=== PATIENT | female | born 1945 | race Caucasian/White ===

== ENCOUNTER 2019-05-22 06:21 | Emergency (ER) | payer MEDICARE, SELFPAY ==
[2019-05-22] VITALS (16 sets, daily range): BP systolic 45–191; BP diastolic 0–99; PULSE 74–101; RESP 14–44; TEMP 36.4; O2SAT 97–100; BMI 15.0
--- NOTE | 2019-05-22 06:29 | XR_ITS ---
WS: [id number] Portable AP upright chest, 05/22/2019, 0654 hours. Clinical Data: cough Comparison: Portable chest, 03/11/2019. Findings: No nodules, masses or effusions are seen. The heart is normal. The pulmonary vascularity is not increased. No pneumonia or pneumothorax is seen. The diaphragms are flattened. The aortic arch a nd the descending aorta show tortuosity. XR/XR chest 1V portable [id number] Impression: Atherosclerosis and hyperinflation.
--- NOTE | 2019-05-22 06:30 | ECG_ITS ---
Measurements Intervals [place] Rate: 93 P: 89 WI: 136 QRS: 83 QRSD: 101 T: 63 QT: 366 QTc: 456 SINUS RHYTHM MINIMAL VOLTAGE CRITERIA FOR LVH, CONSIDER NORMAL VARIANT [MEETS CRITERIA IN ONE : OF: R(aVL), S(V1), R(V5), R(V5/V6)+S(V1)] NONSPECIFIC T-WAVE ABNORMALITY Compared to ECG 03/11/2019 10:33:29 T-wave abnormality now present Electronically Signed On 05-22-2019 19:44:11 CUT AND COVER LINE WORKER by Norah Marin M.D. [id number] eddy
--- NOTE | 2019-05-22 06:39 | W.ED.SOB ---
HPI - SOB/Dyspnea General: Chief Complaint: Shortness of Breath/Dyspnea Stated Complaint: SOB Time Seen by Provider: 05/22/19 06:29 History of Present Illness: HPI Narrative: Deja Fletcher is a 73-year-old female who comes in with shortness of breath. History is very limited as the patient is in severe respiratory distress. Family member states she has COPD and wears 3 L of nasal cannula oxygen at all times. Patient has audible wheezing upon entry to the room. She denies any pain. Review of Systems General: Reports: ROS unobtainable due to medical condition (Respiratory distress) PFSH ED PFSH: Social History Smoking and tobacco status: former smoker Physical Exam Const: COMMON NORMALS: no apparent distress, oriented x3, no limitations, healthy appearing and well nourished EXAM LIMITATIONS: no altered mental status GENERAL APPEARANCE: cooperative, well kempt and well developed ORIENTATION/CONSCIOUSNESS: Yes awake HENMT: COMMON NORMALS: normocephalic, head/scalp atraumatic, hearing grossly normal bilaterally, external ears normal, EAC's normal, external nose normal and moist oral mucous membranes HEAD & SCALP: normal to inspection, normocephalic and atraumatic FACE & SINUS: normal facial exam and face symmetric NOSE: external nose normal and nares normal EXTERNAL EAR: Yes external ears normal EXTERNAL AUDITORY CANAL: EAC's normal MOUTH: oral and palatal mucosa normal and tongue normal Eye: COMMON NORMALS: PERRL, EOMs intact bilaterally, conjunctivae normal and no scleral icterus GENERAL EYE: normal appearance of both eyes and normal light reflex CONJUNCTIVA: Yes conjunctivae normal SCLERA: sclerae normal CORNEA: Yes corneas normal PUPIL: Yes PERRL DIRECT OPHTHALMOSCOPY: Yes normal light reflex Neck/C-Spine: COMMON NORMALS: full ROM, no lymphadenopathy, supple, no meningeal signs and no JVD GENERAL: Yes normal visual inspection and Yes trachea midline CERVICAL SPINE: Yes cervical ROM normal Chest: COMMONS NORMALS: inspection of chest normal and palpation of chest normal Resp: EFFORT & INSPECTION: Yes audible wheezes AUSCULTATION: rhonchi and wheezes Cardio: COMMON NORMALS: no JVD, regular rate, regular rhythm, S1 normal heart sound, S2 normal heart sound, no gallops, no clicks, no murmurs and no rub JUGULAR VENOUS DISTENTION: no JVD RATE: regular rate RHYTHM: regular rhythm HEART SOUNDS: S1 normal and S2 normal GI: COMMON NORMALS: soft to palpation, non-tender, no hepatosplenomegaly and no masses INSPECTION: Yes normal to inspection PALPATION: Yes soft and Yes no hepatosplenomegaly : COMMON NORMALS: Yes no CVA tenderness BLADDER/KIDNEY EXAM: Yes no CVA tenderness Back/Pelvis: COMMON NORMALS: no CVA tenderness, thoracic and lumbar spine normal to inspection, no thoracic nor lumbar tenderness and thoraco-lumbar ROM normal Extremity: COMMON NORMALS: normal to inspection, full ROM, normal capillary refill, no joint enlargement, no clubbing, cyanosis or edema and no calf tenderness Neuro: COMMON NORMALS: oriented x3, CN's II-XII intact bilaterally, moves all extremities, no focal motor deficits and no sensory deficits noted MENINGEAL SIGNS: Yes no meningeal signs Psych: COMMON NORMALS: mental status grossly normal, thought process normal, cooperative, affect normal, speech normal and activity/motor behavior normal APPEARANCE: Yes well kempt SPEECH: Yes normal speech THOUGHT PROCESS: normal thought process Skin: COMMON NORMALS: no rashes or lesions noted, skin turgor normal, no jaundice, no petechiae and no mottling GENERAL SKIN EXAM: no rashes or lesions noted and turgor normal Course Vital Signs: Vital signs: Vital Signs Temperature 97.6 F 05/22/19 06:27 Pulse Rate 101 H 05/22/19 06:27 Respiratory Rate 44 H 05/22/19 06:27 Blood Pressure 191/90 05/22/19 06:27 Pulse Oximetry 99 05/22/19 06:27 Coding Level of Care Code ED Marina Porter for Alena Hammond
[2019-05-22 06:46] LABS: Basophils % 0.5 %; Eosinophils # 0.6 10^3/uL (0.0-0.8); Eosinophils % 7.7 %; Hematocrit 42.5 % (37.0-47.0); Hemoglobin 13.5 g/dL (11.5-15.3); Lymphocytes # 1.5 10^3/uL (0.8-4.8); Lymphocytes % 19.2 %; Mean Corpuscular HGB Conc 31.8 g/dL (30.0-36.0); Mean Corpuscular Hemoglobin 28.9 pg (28.0-34.0); Mean Platelet Volume 9.6 fL (7.4-10.4); Monocytes # 0.5 10^3/uL (0.2-0.9); Monocytes % 6.5 %; Neutrophils % 65.8 %; Nucleated Red Blood Cells % 0 %; Platelet Count 261 10^3/cmm (130-400); Red Blood Count 4.67 10^6/uL (4.1-5.3); Red Cell Distribution Width 14.3 % (12.1-15.1); White Blood Count 7.6 10^3/uL (4.0-10.0)
[2019-05-22] MEDS: sodium chloride 0.9% 1,000 ML 100 ML IV (06:47)
[2019-05-22 07:03] LABS: Troponin(5th) Baseline 34 ng/mL (0-10)
[2019-05-22] MEDS: ipratropium-albuterol 3 mL Neb 9 ML INHALATION (07:03)
[2019-05-22 07:11] LABS: Alanine Aminotransferase 22 U/L (0-33); Albumin Level 4.6 g/dL (3.5-5.2); Alkaline Phosphatase 101 IU/L (35-105); Aspartate Amino Transferase 26 U/L (0-32); Blood Urea Nitrogen 12 mg/dL (8-23); Calcium 10.1 mg/dL (8.5-10.5); Carbon Dioxide 28 mmol/L (22-29); Chloride 100 mmol/L (98-107); Globulin 2.7 g/dL (1.3-4.6); Glucose 129 mg/dL (65-115); NT Pro B Type Natriuretic Pept 1245 pg/mL (0-125); Sodium 141 mmol/L (136-145); Total Bilirubin 0.3 mg/dL (0.15-1.2); Total Protein 7.3 g/dL (6.6-8.7)
[2019-05-22 07:19] LABS: Lactic Sepsis W/Reflex 1.1 mmol/L (0.5-2.2)
[2019-05-22] MEDS: succinylcholine 20 mg/mL SDV 10mL IVP (07:30)
[2019-05-22] MEDS: vecuronium 10 mg SDV IVP ×3 (07:40→11:48)
[2019-05-22] MEDS: LORazepam 2 mg/mL INJ 1 mL 1 MG IVP (07:46)
[2019-05-22 07:53] LABS: ABG PCO2 56.3 mmHg (35-45); ABG PH Result 7.33 (7.35-7.45); Arterial Blood Gas Hematocrit 41.7 % (37-47); Base Excess ABG 2.7 mmol/L (-2.0-2.0); Blood Gas Allen Test Pos; Blood Gas Sample Site Brachial, left; Blood Gas Sample Type Arterial; Blood Gas Tidal Volume 0.3; HCO3 ABG 29.9 mmol/L (22-26); Oxygen Device VENT
--- NOTE | 2019-05-22 07:59 | XR_ITS ---
WS: [id number] Portable AP upright chest, 05/22/2019, 0737 hours Clinical Data: confirm ET placement Comparison: Portable chest, 05/22/2019, 0654 hours. Findings: The endotracheal tube is above the tri. The nasogastric tube appears to be in the esopha maite and within the stomach. The diaphragms are flattened. No pneumothorax is present. Monitor leads o n the chest wall. The heart is normal. XR/XR chest 1V portable [id number] Impression: 1. Endotracheal tube above tri. 2. Nasogastric tube in good position. 3. Hyperinflation.
--- NOTE | 2019-05-22 08:02 | PC.NURSE ---
Unable to pull diprivan as ordered. Small vial pulled from RSI box. Pharmacy called and diprivan requested. Charge nurse advised of the use of RSI box diprivan.
[2019-05-22] MEDS: propofol 1,000 MG/100 ML INJ 2.2 MG IV (08:09)
[2019-05-22] MEDS: fentaNYL 50 mcg/mL INJ 2mL 100 MCG IVP ×2 (08:29→10:19)
--- NOTE | 2019-05-22 08:30 | ECG_ITS ---
Measurements Intervals [place] Rate: 76 P: 82 SD: 124 QRS: 85 QRSD: 102 T: 0 QT: 401 QTc: 451 SINUS RHYTHM MINIMAL VOLTAGE CRITERIA FOR LVH, CONSIDER NORMAL VARIANT [MEETS CRITERIA IN ONE : OF: R(aVL), S(V1), R(V5), R(V5/V6)+S(V1)] NONSPECIFIC T-WAVE ABNORMALITY Compared to ECG 03/11/2019 10:33:29 T-wave abnormality now present Electronically Signed On 05-22-2019 19:56:44 HOMICIDE SQUAD SERGEANT by Norah Marin M.D. [id number] eddy
[2019-05-22 08:51] LABS: Troponin 5 2HR 29.21 ng/mL (0-10)
[2019-05-22 08:55] LABS: Troponin 5 2HR Delta -4.79 ABS# (0-10)
[2019-05-22] MEDS: sodium chloride 0.9% 500 ML 999 ML IV (09:07)
[2019-05-22 10:25] LABS: Influenza A by IFA Negative (Negative); Influenza B by IFA Negative (Negative)
== END 2019-05-22 11:49 | disposition other institution (70) ==
PROVIDERS: Emergency Medicine; Emergency Provider Family Medicine; Family Provider Family Medicine
DX: R06.02 Shortness of breath (principal); R06.2 Wheezing; J44.9 Chronic obstructive pulmonary disease, unspecified; Z87.891 Personal history of nicotine dependence; Z99.81 Dependence on supplemental oxygen
CPT/HCPCS: 36415; 36600; 71045; 80053; 82803; 83605; 83735; 83880; 84484; 85025; 87040; 87070; 87205; 87804; 93005; 94002; 94640; 94799; 96365; 96366; 96367; 96374; 96375; 96376; 99284; 99291; J0330; J2060; J2704; J2930; J3010; J3490; J7030; J7040

== ENCOUNTER 2019-06-23 12:49 | Emergency (ER) | payer MEDICARE, SELFPAY ==
[2019-06-23 12:59] VITALS: BP 184/82; PULSE 89; RESP 17; TEMP 36.9; O2SAT 100; BMI 20.1
[2019-06-23 13:02] VITALS: PULSE 89; TEMP 36.9; O2SAT 100
--- NOTE | 2019-06-23 13:12 | W.ED.SOB ---
HPI - SOB/Dyspnea General: Chief Complaint: Shortness of Breath/Dyspnea Stated Complaint: sob Time Seen by Provider: 06/23/19 13:08 History of Present Illness: HPI Narrative: 73 yo female planing of shortness of breath. She is very anxious on exam room she is hyperventilating states shortness of breath began at home but got worse when she got here she denies any chest pain no fever sweats chills no productive cough no vomiting no diarrhea. Associated symptoms: Deny abdominal pain, chest pain, fever(s), nausea, orthopnea or vomiting Review of Systems Const: Denies: fever, chills, body aches, change in appetite, fatigue or malaise ENMT: Denies: throat pain, ear pain, nasal discharge or nasal congestion Card: Denies: chest pain, edema, shortness of breath on exertion or shortness of breath when lying down Resp: Reports: shortness of breath and non-productive cough; Denies: productive cough GI: Denies: abdominal pain, nausea, vomiting, vomiting blood, coffee grounds in vomit, diarrhea, constipation, bloating, blood in stool or black tarry stool : Denies: flank pain, difficulty urinating, painful urination, urinary frequency or urinary urgency Skin/Breast: Denies: rash or itching PFSH ED PFSH: Social History Smoking and tobacco status: current every day smoker Physical Exam Const: COMMON NORMALS: no apparent distress GENERAL APPEARANCE: cooperative and comfortable ORIENTATION/CONSCIOUSNESS: Yes awake, Yes oriented to person, Yes oriented to place and Yes oriented to time HENMT: COMMON NORMALS: normocephalic, head/scalp atraumatic, hearing grossly normal bilaterally, external ears normal, EAC's normal, TM's normal bilaterally, nasal mucous membranes and turbinates normal, moist oral mucous membranes and oropharynx normal HEAD & SCALP: normocephalic and atraumatic NOSE: nasal mucous membranes and turbinates normal EXTERNAL EAR: Yes external ears normal EXTERNAL AUDITORY CANAL: EAC's normal TYMPANIC MEMBRANE: TM's normal bilaterally Eye: COMMON NORMALS: PERRL, EOMs intact bilaterally, conjunctivae normal and no scleral icterus CONJUNCTIVA: Yes conjunctivae normal PUPIL: Yes PERRL Neck/C-Spine: COMMON NORMALS: full ROM, no lymphadenopathy, supple and no JVD Lymph: LYMPHATIC: no lymphadenopathy noted and no lymphedema noted Resp: COMMON NORMALS: normal respiratory effort, no retractions, no use of accessory muscles and clear to auscultation bilaterally AUSCULTATION: clear to auscultation bilaterally Cardio: COMMON NORMALS: no JVD, regular rate, regular rhythm and no murmurs RATE: regular rate RHYTHM: regular rhythm GI: COMMON NORMALS: soft to palpation and no hepatosplenomegaly AUSCULTATION: Yes normoactive bowel sounds PALPATION: Yes soft, No tender, No guarding and Yes no hepatosplenomegaly Extremity: COMMON NORMALS: normal to inspection, normal capillary refill, no clubbing, cyanosis or edema, no calf tenderness and no pedal edema Neuro: SENSORIUM/ORIENTATION: Yes oriented to person, Yes oriented to place and Yes oriented to time Skin: COMMON NORMALS: no rashes or lesions noted GENERAL SKIN EXAM: no rashes or lesions noted Course Vital Signs: Vital signs: Vital Signs Temperature 98.5 F 06/23/19 13:02 Pulse Rate 82 06/23/19 14:38 Respiratory Rate 17 06/23/19 14:38 Blood Pressure 184/82 06/23/19 12:59 Pulse Oximetry 94 06/23/19 14:38 MDM - SOB/Dyspnea MDM Narrative: Medical decision making narrative: Reviewed work-up with the patient including the labs . When patient first a lot arrived she was hyperventilating. No other significant findings at this time we will go ahead and discharge her home have her follow-up as needed return to emergency room if she has problems. Lab Data: Attestation: I reviewed the patient's lab results. Labs: Lab Results 06/23/19 06/23/19 06/23/19 Range/Units 13:15 13:15 14:06 WBC 5.7 (4.0-10.0) 10^3/ uL RBC 4.15 (4.1-5.3) 10^6/u L Hgb 12.4 (11.5-15.3) g/dL Hct 39.7 (37.0-47.0) % MCV 95.7 (81-99) fL MCH 29.9 (28.0-34.0) pg MCHC 31.2 (30.0-36.0) g/dL RDW 14.4 (12.1-15.1) % Plt Count 234 (130-400) 10^3/c mm MPV 9.7 (7.4-10.4) fL Neut % (Auto) 60.9 % Lymph % (Auto) 24.2 % Pettis % (Auto) 8.9 % Eos % (Auto) 5.3 % Baso % (Auto) 0.5 % Neut # (Auto) 3.5 (1.8-7.7) 10^3/u L Lymph # (Auto) 1.4 (0.8-4.8) 10^3/u L Pettis # (Auto) 0.5 (0.2-0.9) 10^3/u L Eos # (Auto) 0.3 (0.0-0.8) 10^3/u L Baso # (Auto) 0.0 (0.0-0.1) 10^3/u L Nucleated RBC % (a uto) 0 % Nucleated RBCs # 0.0 /100WBC Specimen Type Arterial Sample Site Brachial, right ABG pH 7.45 (7.35-7.45) ABG pCO2 38.7 (35-45) mmHg ABG pO2 86.6 (80.0-100.0) mmH g ABG HCO3 27.1 H (22-26) mmol/L ABG O2 Saturation 97.5 ABG Base Excess 3.0 H (-2.0-2.0) mmol/ L Som Test N/a A-a O2 Gradient 88.1 H (5-10) mmHg Hematocrit 39.0 (37-47) % Hgb O2 Saturation 95.4 (95-100) % Carboxyhemoglobin 1.3 (0.4-20.1) %THgb Methemoglobin 0.9 (0.4-1.5) % Total Hemoglobin 12.7 (12-16) g/dL Ionized Calcium 1.2 (1.1-1.4) mmol/L O2 Delivery Device Nc O2 Liters/Min 3.0 % FiO2 32.0 % Automobile Rental Clerk ID amh Sodium 143 141.0 (136-145) mmol/L Potassium 4.1 3.7 (3.5-5.1) mmol/L Chloride 102 (98-107) mmol/L Carbon Dioxide 28 (22-29) mmol/L Anion Gap 17.1 (5-19) BUN 13 (8-23) mg/dL Creatinine 0.7 (0.5-0.9) mg/dL Glucose 109 95.0 (65-115) mg/dL Calculated Osmolal ity 293 (285-295) mOsm/k g Calcium 10.0 (8.5-10.5) mg/dL Total Bilirubin 0.2 (0.15-1.2) mg/dL AST 21 (0-32) U/L ALT 13 (0-33) U/L Alkaline Phosphata se 91 (35-105) IU/L Total Protein 6.9 (6.6-8.7) g/dL Albumin 4.4 (3.5-5.2) g/dL Globulin 2.5 (1.3-4.6) g/dL Imaging Data^: CXR: Radiologist's impression: PROCEDURE INFORMATION: Exam: XR Chest, 1 View Exam date and time: 06/23/2019 1:39 PM Age: 73 years old Clinical indication: Cough and dyspnea; Patient HX: Cough/dyspnea x 5 days; Smoker; Additional info: Dyspnea/cough TECHNIQUE: Imaging protocol: XR of the chest Views: 1 view. COMPARISON: CR XR chest 1V portable [id number] 05/22/2019 7:31 AM FINDINGS: Lungs: Probable COPD with large lung volumes. No acute infiltrate evident. Pleural space: Unremarkable. No pleural effusion. No pneumothorax. Heart/Mediastinum: Unremarkable. No cardiomegaly. Bones/joints: Unremarkable. XR/XR chest 1V portable [id number] IMPRESSION: No acute findings. Probable COPD. Dictated By:Vinnie West MD Discharge Plan Discharge Patient Disposition: Home, Self-Care Clinical Impression: Acute hyperventilation syndrome Condition: Stable Prescriptions: No Action fluticasone propion-salmeterol [Wixela Inhub] 250-50 mcg/dose blister with device 1 ea INHALATION BID RF: 0 ipratropium-albuterol 0.5 mg-3 mg(2.5 mg base)/3 mL solution for nebulization 3 ml INHALATION Q6H PRN (Reason: Shortness Of Breath) RF: 0 donepezil 5 mg tablet 5 mg PO DAILY RF: 0 aspirin 81 mg Tablet,Chewable 81 - 162 mg PO DAILY RF: 0 albuterol sulfate 90 mcg/actuation HFA aerosol inhaler 1 puff INHALATION Q6H PRN (Reason: Shortness Of Breath) RF: 0 cetirizine 1 mg/mL solution 5 mg PO DAILY RF: 0 Discharge Orders: Discharge Order (Routine); Ordered 06/23/19 Ordered By: Booker Melendez Referrals: Shayy Hayden MD [Primary Care Provider] - Discharge Diet: Usual diet Discharge Activity: Resume usual activity Activity Restrictions/Additional Instructions: Follow-up with your doctor as needed Discharge Date/Time: 06/23/19 14:45 Coding Level of Care Code ED Oxidation Operator for Chg Fwd Exam Comprehensive
--- NOTE | 2019-06-23 13:38 | XRR_ITS ---
PROCEDURE INFORMATION: Exam: XR Chest, 1 View Exam date and time: 06/23/2019 1:39 PM Age: 73 years old Clinical indication: Cough and dyspnea; Patient HX: Cough/dyspnea x 5 days; Smoker; Additional info: Dyspnea/cough TECHNIQUE: Imaging protocol: XR of the chest Views: 1 view. COMPARISON: CR XR chest 1V portable [id number] 05/22/2019 7:31 AM FINDINGS: Lungs: Probable COPD with large lung volumes. No acute infiltrate evident. Pleural space: Unremarkable. No pleural effusion. No pneumothorax. Heart/Mediastinum: Unremarkable. No cardiomegaly. Bones/joints: Unremarkable. XR/XR chest 1V portable [id number] IMPRESSION: No acute findings. Probable COPD.
[2019-06-23 13:50] LABS: Basophils % 0.5 %; Eosinophils # 0.3 10^3/uL (0.0-0.8); Eosinophils % 5.3 %; Hematocrit 39.7 % (37.0-47.0); Hemoglobin 12.4 g/dL (11.5-15.3); Lymphocytes # 1.4 10^3/uL (0.8-4.8); Lymphocytes % 24.2 %; Mean Corpuscular HGB Conc 31.2 g/dL (30.0-36.0); Mean Corpuscular Hemoglobin 29.9 pg (28.0-34.0); Mean Corpuscular Volume 95.7 fL (81-99); Mean Platelet Volume 9.7 fL (7.4-10.4); Monocytes # 0.5 10^3/uL (0.2-0.9); Monocytes % 8.9 %; Neutrophils # 3.5 10^3/uL (1.8-7.7); Neutrophils % 60.9 %; Nucleated Red Blood Cells % 0 %; Platelet Count 234 10^3/cmm (130-400); Red Blood Count 4.15 10^6/uL (4.1-5.3); Red Cell Distribution Width 14.4 % (12.1-15.1); White Blood Count 5.7 10^3/uL (4.0-10.0)
[2019-06-23 14:14] LABS: Alanine Aminotransferase 13 U/L (0-33); Albumin Level 4.4 g/dL (3.5-5.2); Alkaline Phosphatase 91 IU/L (35-105); Anion Gap 17.1 (5-19); Blood Urea Nitrogen 13 mg/dL (8-23); Carbon Dioxide 28 mmol/L (22-29); Chloride 102 mmol/L (98-107); Creatinine Clr Calc Pharmacy 49.4536; Globulin 2.5 g/dL (1.3-4.6); Glucose 109 mg/dL (65-115); Osmolality Calculated 293 mOsm/kg (285-295); Potassium 4.1 mmol/L (3.5-5.1); Sodium 143 mmol/L (136-145); Total Bilirubin 0.2 mg/dL (0.15-1.2); Total Protein 6.9 g/dL (6.6-8.7)
[2019-06-23 14:18] VITALS: PULSE 82; RESP 16; O2SAT 99
[2019-06-23 14:18] LABS: ABG PCO2 38.7 mmHg (35-45); ABG PH Result 7.45 (7.35-7.45); Alveolar-Arterial Oxygen Gradi 88.1 mmHg (5-10); Blood Gas Operator Identificat amh; Blood Gas Sample Site Brachial, right; Blood Gas Sample Type Arterial; Carboxyhemoglobin 1.3 %THgb (0.4-20.1); HCO3 ABG 27.1 mmol/L (22-26); HGB O2 Sat 95.4 % (95-100); Ionized Calcium Level - ABG 1.2 mmol/L (1.1-1.4); Methemoglobin 0.9 % (0.4-1.5); Oxygen Device NC; Oxygen Saturation ABG 97.5; PO2 ABG 86.6 mmHg (80.0-100.0); Potassium Level - ABG 3.7 mmol/L (3.5-5.0); Total Hemoglobin 12.7 g/dL (12-16)
[2019-06-23 14:20] LABS: Aspartate Amino Transferase 21 U/L (0-32)
[2019-06-23] MEDS: LORazepam 1 mg Tablet 0.5 MG PO (14:36)
[2019-06-23 14:38] VITALS: PULSE 82; RESP 17; O2SAT 94
== END 2019-06-23 14:45 | disposition home or self-care (01) ==
PROVIDERS: Emergency Provider Family Medicine; Family Provider Family Medicine; PCP Family Medicine
DX: F45.8 Other somatoform disorders (principal); F17.200 Nicotine dependence, unspecified, uncomplicated
CPT/HCPCS: 12345; 36600; 71045; 80051; 80053; 82810; 83986; 85025; 99282; 99283

== ENCOUNTER 2019-07-18 12:43 | Emergency (ER) | payer MEDICARE, SELFPAY ==
[2019-07-18] VITALS (7 sets, daily range): BP systolic 123–173; BP diastolic 35–87; PULSE 80–96; RESP 24–76; TEMP 36.4; O2SAT 88–93; BMI 18.3
--- NOTE | 2019-07-18 12:56 | ECG_ITS ---
Measurements Intervals [place] Rate: 88 P: 85 ID: 100 QRS: 84 QRSD: 93 T: -9 QT: 384 QTc: 466 SINUS RHYTHM WITH SINUS ARRHYTHMIA WITH SHORT ID INTERVAL NONSPECIFIC ST & T-WAVE ABNORMALITY Compared to ECG 05/22/2019 08:34:11 Short ID interval now present T-wave abnormality still present Electronically Signed On 07-19-2019 6:43:18 CDT by Rayray Mesa M.D. [email or web address]
--- NOTE | 2019-07-18 12:56 | XR_ITS ---
WS: [id number] CHEST XRAY TECHNIQUE: Portable chest. CLINICAL INFORMATION: sob COMPARISON: June 23, 2019 FINDINGS: Heart: Normal cardiac silhouette. Lungs: Moderate chronic emphysematous changes. No acute pulmonary infiltrates. No focal pneumonia. No pleural fluid. Bones: Normal visualized bony structures. XR/XR chest 1V portable [id number] IMPRESSION: Moderate chronic emphysematous changes. No acute pulmonary infiltrates.
--- NOTE | 2019-07-18 12:57 | ED_ITS ---
HPI - SOB/Dyspnea General: Chief Complaint: Shortness of Breath/Dyspnea Stated Complaint: sob Time Seen by Provider: 07/18/19 12:49 Source: patient Mode of arrival: ambulatory Limitations: no limitations History of Present Illness: HPI Narrative: 74-year-old female who states she was in an argument with her just before arrival became very short of breath and anxious. Patient is very tachypneic here and having a panic attack. She has had multiple of these in the past and was seen here 2 weeks ago with the same. She denies any chest pain. Denies any fevers. MD elicited complaint: shortness of breath Onset (ago): minute(s) Associated symptoms: Deny abdominal pain, chest pain, fever(s), nausea or vomiting Review of Systems Const: Denies: fever, chills, body aches or change in appetite Eyes: Denies: blurry vision or eye discomfort ENMT: Denies: throat pain or dental pain Card: Denies: chest pain Resp: Reports: shortness of breath GI: Denies: abdominal pain, nausea, vomiting or diarrhea : Denies: painful urination Musc: Denies: neck pain or back pain Skin/Breast: Denies: rash Neuro: Denies: headache Psych: Reports: anxiety Thomas/Lymph: Denies: easy bruising All/Imm: Denies: hives PFSH ED PFSH: Social History Smoking and tobacco status: former smoker Physical Exam Const: COMMON NORMALS: no apparent distress, oriented x3 and healthy appearing HENMT: COMMON NORMALS: normocephalic and head/scalp atraumatic HEAD & SCALP: normocephalic and atraumatic Eye: COMMON NORMALS: PERRL and EOMs intact bilaterally PUPIL: Yes PERRL Neck/C-Spine: COMMON NORMALS: full ROM and supple Chest: COMMONS NORMALS: inspection of chest normal and palpation of chest normal Resp: COMMON NORMALS: no retractions, no use of accessory muscles and clear to auscultation bilaterally EFFORT & INSPECTION: Yes tachypneic AUSCULTATION: clear to auscultation bilaterally Cardio: COMMON NORMALS: regular rate, regular rhythm and no murmurs RATE: regular rate RHYTHM: regular rhythm GI: COMMON NORMALS: normal to inspection, nondistended, normoactive bowel sounds, soft to palpation, non-tender and no masses PALPATION: Yes soft Extremity: COMMON NORMALS: normal to inspection and full ROM Neuro: COMMON NORMALS: oriented x3, moves all extremities and no focal motor deficits Psych: COMMON NORMALS: mental status grossly normal, thought process normal and cooperative MOOD & AFFECT: Yes anxious THOUGHT PROCESS: normal thought process Skin: COMMON NORMALS: no rashes or lesions noted and no wounds GENERAL SKIN EXAM: no rashes or lesions noted Course Vital Signs: Vital signs: Vital Signs Temperature 97.6 F 07/18/19 12:53 Pulse Rate 86 07/18/19 14:22 Respiratory Rate 36 H 07/18/19 14:22 Blood Pressure 123/72 07/18/19 14:22 Pulse Oximetry 90 07/18/19 14:22 MDM - SOB/Dyspnea MDM Narrative: Medical decision making narrative: Patient presents here with dyspnea is likely from an anxiety attack. She feels much improved here after Ativan. She had a large work-up a week ago that was normal. EKG and x-ray here are normal. She is stable for discharge and is to follow-up with worsening. Lab Data: Labs: Lab Results 07/18/19 07/18/19 Range/Units 14:10 14:10 WBC 6.4 (4.0-10.0) 10^3/ uL RBC 4.38 (4.1-5.3) 10^6/u L Hgb 12.7 (11.5-15.3) g/dL Hct 40.2 (37.0-47.0) % MCV 91.8 (81-99) fL MCH 29.0 (28.0-34.0) pg MCHC 31.6 (30.0-36.0) g/dL RDW 13.8 (12.1-15.1) % Plt Count 188 (130-400) 10^3/c mm MPV 10.0 (7.4-10.4) fL Neut % (Auto) 69.1 % Lymph % (Auto) 15.6 % Chambers % (Auto) 8.1 % Eos % (Auto) 6.4 % Baso % (Auto) 0.6 % Neut # (Auto) 4.4 (1.8-7.7) 10^3/u L Lymph # (Auto) 1.0 (0.8-4.8) 10^3/u L Chambers # (Auto) 0.5 (0.2-0.9) 10^3/u L Eos # (Auto) 0.4 (0.0-0.8) 10^3/u L Baso # (Auto) 0.0 (0.0-0.1) 10^3/u L Nucleated RBC % (a uto) 0 % Nucleated RBCs # 0.0 /100WBC Sodium 144 (136-145) mmol/L Potassium 3.2 L (3.5-5.1) mmol/L Chloride 102 (98-107) mmol/L Carbon Dioxide 29 (22-29) mmol/L Anion Gap 16.2 (5-19) BUN 13 (8-23) mg/dL Creatinine 0.6 (0.5-0.9) mg/dL Glucose 103 (65-115) mg/dL Calculated Osmolal ity 294 (285-295) mOsm/k g Calcium 9.8 (8.5-10.5) mg/dL Imaging Data^: CXR: Attestation: I personally reviewed and interpreted this imaging study as follows: Radiologist's impression: EKG Data^: EKG 1: Attestation: I personally reviewed and interpreted this EKG as follows: EKG Interpretation Date: 07/18/19 EKG interpretation time: 13:07 Interpretation: nsr hr [address] or t wave abnormalities qrs 93 qtc 430 Discharge Plan Discharge Patient Disposition: Home, Self-Care Clinical Impression: Anxiety Condition: Stable Prescriptions: No Action venlafaxine 75 mg capsule,extended release 24hr 75 mg PO DAILY RF: 0 lorazepam 0.5 mg tablet 0.5 mg PO BID PRN (Reason: unknown) RF: 0 fluticasone propion-salmeterol [Wixela Inhub] 250-50 mcg/dose blister with device 1 ea INHALATION BID RF: 0 ipratropium-albuterol 0.5 mg-3 mg(2.5 mg base)/3 mL solution for nebulization 3 ml INHALATION Q6H PRN (Reason: Shortness Of Breath) RF: 0 donepezil 5 mg tablet 10 mg PO DAILY RF: 0 aspirin 81 mg Tablet,Chewable 81 - 162 mg PO DAILY RF: 0 albuterol sulfate 90 mcg/actuation HFA aerosol inhaler 2 puff INHALATION QID PRN (Reason: Shortness Of Breath) RF: 0 cetirizine 1 mg/mL solution 5 mg PO DAILY RF: 0 Discharge Orders: Discharge Order (Routine); Ordered 07/18/19 Ordered By: Chip Perez Referrals: Shayy Hayden MD [Primary Care Provider] - 1-3 days Discharge Diet: Advance as tolerated Discharge Activity: Resume usual activity Patient Instructions: Anxiety (ED) Coding Level of Care Code ED Reinforced Concrete Inspector for Chg Fwd Exam Comprehensive
[2019-07-18] MEDS: LORazepam 2 mg/mL INJ 1 mL 1 MG IM (13:21)
--- NOTE | 2019-07-18 13:58 | PC.NURSE ---
pt. hightly anxious, repeated couching and she is still crying
[2019-07-18] MEDS: LORazepam 2 mg/mL INJ 1 mL 0.5 MG IVP (14:20)
[2019-07-18 14:21] LABS: Basophils % 0.6 %; Eosinophils # 0.4 10^3/uL (0.0-0.8); Eosinophils % 6.4 %; Hematocrit 40.2 % (37.0-47.0); Hemoglobin 12.7 g/dL (11.5-15.3); Lymphocytes % 15.6 %; Mean Corpuscular HGB Conc 31.6 g/dL (30.0-36.0); Mean Corpuscular Volume 91.8 fL (81-99); Monocytes # 0.5 10^3/uL (0.2-0.9); Monocytes % 8.1 %; Neutrophils # 4.4 10^3/uL (1.8-7.7); Neutrophils % 69.1 %; Nucleated Red Blood Cells % 0 %; Platelet Count 188 10^3/cmm (130-400); Red Blood Count 4.38 10^6/uL (4.1-5.3); Red Cell Distribution Width 13.8 % (12.1-15.1); White Blood Count 6.4 10^3/uL (4.0-10.0)
--- NOTE | 2019-07-18 14:23 | PC.NURSE ---
pt. anxious and crying meds given IV
[2019-07-18 14:40] LABS: Anion Gap 16.2 (5-19); Blood Urea Nitrogen 13 mg/dL (8-23); Calcium 9.8 mg/dL (8.5-10.5); Carbon Dioxide 29 mmol/L (22-29); Chloride 102 mmol/L (98-107); Creatinine Clr Calc Pharmacy 46.9483; Glucose 103 mg/dL (65-115); Osmolality Calculated 294 mOsm/kg (285-295); Potassium 3.2 mmol/L (3.5-5.1); Sodium 144 mmol/L (136-145)
--- NOTE | 2019-07-18 15:07 | PC.CHAP ---
Pastoral Care Encounter/Spiritual Assessment Type of Contact [] Declined prepress operator visit [] Patient/Family/Request visit [] Outpatient visit [] Follow-up visit [] Physician referral [] Code/Alert [] Routine visit [x] Staff referral [] Actively dying [] Patient sleeping [] Family support [] [] Out of room [] Palliative care [] [] Receiving care in room [] Pre-surgical visit [] Trauma [] Long length of stay [] ICU visit [] Other: ER Relational/Emotional Strength [] Patient feels connected with others/family/visitors/staff [x] Distress [x] Loneliness/isolation [x] Abandonment Spirituality of Patient [] Person of Beth [] Attends Restoration of their Beth [] Believes in Prayer [] Reads Bible or Hoahaoism materials [x] There are Spiritual issues to be addressed Stucco Plasterer Interventions [x] Prayer [x] Active listening [x] Non-anxious presence [x] Spiritual/emotional support [] Crisis/trauma care [] Spiritual counseling [] Bereavement support [] Provided bereavement packet [] Provided Bible/devotional materials [] Provided toy/stuffed animal, coloring book to patient or family member [] Provided Communion [] Anointing/[place] [] Salvation [x] Completed spiritual assessment [] Other: Impact on Illness or Injury [] Angry [] Fearful [] Anxious [] Often cries [] Exhaustion [] Unable to work [] Unable to attend advent [] Unable to walk/stand [] Unable to read [] Unable to drive [] Unable to eat/drink [] Unable to sleep [] Unable to be with family [] Patient intubated [] Other: Summary Stucco Plasterer was ask to try and calm patient down by ED staff. Patient is upset and shaking. She is very anxious about the possibility of going into a Snf. She is fearful of being locked in a room and not allowed out or not allowed to go outside. She is also very Anxious about her dog sissy. She is afraid she will not be taken care of. Patient seems confused and unable to focus due in part because of her fears. She repeated several time that her wanted to put her in an old folks home, she is convinced that if she goes into the home she will be forgotten and . prepress operator attempted to calm her fears and ask her to think about somewhere beautiful and peaceful, this seemed to help only for a few minutes. prepress operator prayed for her. Time spent with patient 25 min
--- NOTE | 2019-07-18 15:50 | PC.NURSE ---
entered room to find the pt. on the floor calling for help. she states she got out of bed. both rails were up on the bed. the charge nurse and the were notifided.
== END 2019-07-18 16:50 | disposition home or self-care (01) ==
PROVIDERS: Emergency Provider Emergency Medicine; Family Provider Family Medicine; PCP Family Medicine
DX: F41.9 Anxiety disorder, unspecified (principal); Z79.82 Long term (current) use of aspirin; Z87.891 Personal history of nicotine dependence
CPT/HCPCS: 12345; 71045; 80048; 85025; 93005; 96372; 96374; 96376; 99283; 99285; J2060

== ENCOUNTER 2019-09-12 09:55 | Inpatient (IN) | payer MEDICARE, SELFPAY ==
[2019-09-12] VITALS (30 sets, daily range): BP systolic 96–199; BP diastolic 55–116; PULSE 62–84; RESP 11–73; TEMP 36.3–37.2; O2SAT 92–100; BMI 17.4
--- NOTE | 2019-09-12 | SCC_ITS ---
Procedure Done: Open reduction internal fixation right intertrochanteric hip fracture utilizing the [place] gamma nail system with a size 11 x 180 x 125 degree gamma 3 trochanteric nail, a size 10 mm x 75 mm lag screw and a 5 mm x 32.5 mm distal locking screw 215.8 seconds of fluoroscopic guidance, for a cumulative dose of 9.26 mGy, was provided to Dr. Ruiz by the radiology department. C-arm images of the RIGHT hip were saved for the patient's permanent record. AVANI
--- NOTE | 2019-09-12 10:20 | PC.NURSE ---
Patient called out using call light to report that she needs to have a bowel movement. Patient placed on bed mckeon. Will continue to monitor patient.
--- NOTE | 2019-09-12 10:31 | ED_ITS ---
HPI - Fall General: Chief Complaint: Fall Stated Complaint: fall, hip pain Time Seen by Provider: 09/12/19 10:05 History of Present Illness: HPI Narrative: 74-year-old female brought in by EMS from home. She fell at home she is little confused now she had received 5 mg of morphine IM in the field. She really cannot tell me how she fell she thinks she may have stumbled but she is not completely certain she is complaining of right hip pain is obvious external rotation and very mild shortening at the right hip. She denies any chest pain or shortness of breath denies any recent illness no upper respiratory illnesses. Denies any dysuria urgency frequency any difficulty with bowel or bladder. Confusion was not present prior to the fall she tells me it became after she had fallen I suspect it is also the morphine she was given. She lives at home with her her is not at the bedside at the time I initially seen the patient. MD complaint: fall Onset (ago): minute(s) Fall from: standing Fall witnessed: yes, by family Place fall occurred: home Loss of consciousness: Unsure Prolonged down time: no Symptoms prior to fall: other (Unknown patient is confused secondary to medication she received in the field she thinks she may have stumbled) Context: tripped/slipped (Patient thinks she may have stumbled but due to medication she received in the field she is not sure) Location of injury: pelvis (Right hip) Severity: moderate Associated symptoms-after fall: Reports difficulty walking; Denies abdominal pain or chest pain Review of Systems Const: Denies: fever(s), chills, body aches, change in appetite, fatigue or malaise ENMT: Denies: throat pain, ear or mastoid pain, nasal discharge or nasal co ngestion Card: Denies: chest pain, edema, dyspnea on exertion or orthopnea Resp: Denies: dyspnea, productive cough or non-productive cough GI: Denies: abdominal pain, nausea, vomiting, hematemesis, coffee ground emesis, diarrhea, constipation, bloating, hematochezia or melena : Denies: flank pain, difficulty voiding, dysuria, urinary frequency or urinary urgency Skin/Breast: Denies: rash or pruritus Neuro: Reports: difficulty walking [facility] ED PFSH: Medical History (Updated 09/15/19 @ 16:35 by Booker Melendez DO) Anxiety COPD (chronic obstructive pulmonary disease) Dementia Surgical History History of hysterectomy Family History (Updated 09/12/19 @ 13:32 by Sendy Edwards DO) Mother CAD (coronary artery disease) Social History Smoking and tobacco status: former smoker Physical Exam Const: COMMON NORMALS: no acute distress GENERAL APPEARANCE: cooperative and comfortable ORIENTATION/CONSCIOUSNESS: Yes awake, Yes oriented to person, Yes oriented to place, Yes oriented to time and Yes Other orientation findings (Patient is oriented to time place and person but she is a little confused due to the details of her fall. I believe this is due to medication she received from EMS in the field. She is having increasing pain that is pretty significant however as I am doing her exam.) HENMT: COMMON NORMALS: normocephalic, atraumatic, hearing grossly normal bilaterally, external ears normal, EAC's normal, TM's normal bilaterally, Normal nasal mucous membranes and turbinates present, moist oral mucous membranes and oropharynx normal HEAD & SCALP: normocephalic and atraumatic NOSE: Normal nasal mucous membranes and turbinates present EXTERNAL EAR: Yes external ears normal EXTERNAL AUDITORY CANAL: EAC's normal TYMPANIC MEMBRANE: TM's normal bilaterally Eye: COMMON NORMALS: Equal, round and reactive pupils present, EOMs intact bilaterally, conjunctivae normal and no scleral icterus CONJUNCTIVA: Yes conjunctivae normal PUPIL: Yes Equal, round and reactive pupils present Neck/C-Spine: COMMON NORMALS: full ROM, no lymphadenopathy, supple and no JVD Lymph: LYMPHATIC: no lymphadenopathy noted and no lymphedema noted Resp: COMMON NORMALS: normal respiratory effort, No retractions, No use of accessory muscles and clear to auscultation bilaterally AUSCULTATION: clear to auscultation bilaterally Cardio: COMMON NORMALS: no JVD, regular rate, regular rhythm and No murmurs present (Cardio) RATE: regular rate RHYTHM: regular rhythm GI: COMMON NORMALS: Soft to palpation and No hepatosplenomegaly present AUSCULTATION: Yes normoactive bowel sounds PALPATION: Yes Soft to palpation, No Tenderness to palpation present (GI), No Guarding due to palpation present (GI) and Yes No hepatosplenomegaly present Extremity: COMMON NORMALS: normal to inspection, capillary refill normal, no clubbing, cyanosis or edema, no calf tenderness and no pedal edema Neuro: SENSORIUM/ORIENTATION: Yes oriented to person, Yes oriented to place and Yes oriented to time Skin: COMMON NORMALS: no rashes or lesions noted GENERAL SKIN EXAM: no rashes or lesions noted Course Vital Signs: Vital signs: Vital Signs Temperature 98.6 F 09/14/19 11:57 Pulse Rate 75 09/14/19 11:57 Respiratory Rate 16 09/14/19 11:57 Blood Pressure 133/60 09/14/19 11:57 Pulse Oximetry 99 09/14/19 10:57 MDM - Fall MDM Narrative: Medical decision making narrative: Not sure the exact details of her fall. She is not having any pain or shortness of breath now I suspect it was a mechanical trip or stumble fall. She cannot really tell me for certain due to medication she received prior to being examined. Unfortunately also to give her some more because he was having pretty significant pain in the ER. Lab Data: Labs: Lab Results 09/12/19 09/12/19 09/12/19 Range/Units 10:40 10:40 10:40 WBC 8.3 (4.0-10.0) 10^3/ uL RBC 3.89 L (4.1-5.3) 10^6/u L Hgb 11.6 (11.5-15.3) g/dL Hct 36.6 L (37.0-47.0) % MCV 94.1 (81-99) fL MCH 29.8 (28.0-34.0) pg MCHC 31.7 (30.0-36.0) g/dL RDW 14.2 (12.1-15.1) % Plt Count 267 (130-400) 10^3/c mm MPV 9.6 (7.4-10.4) fL Neut % (Auto) 75.6 % Lymph % (Auto) 15.0 % Rock % (Auto) 5.4 % Eos % (Auto) 2.9 % Baso % (Auto) 0.7 % Neut # (Auto) 6.3 (1.8-7.7) 10^3/u L Lymph # (Auto) 1.3 (0.8-4.8) 10^3/u L Rock # (Auto) 0.5 (0.2-0.9) 10^3/u L Eos # (Auto) 0.2 (0.0-0.8) 10^3/u L Baso # (Auto) 0.1 (0.0-0.1) 10^3/u L Nucleated RBC % (a uto) 0 % Nucleated RBCs # 0.0 /100WBC PT 12.60 (10.5-13.3) SECO NDS INR 0.92 (0.8-1.2) APTT 25.8 (23.9-36.7) SECO NDS Sodium 138 (136-145) mmol/L Potassium 4.5 (3.5-5.1) mmol/L Chloride 101 (98-107) mmol/L Carbon Dioxide 22 (22-29) mmol/L Anion Gap 19.5 H (5-19) BUN 14 (8-23) mg/dL Creatinine 0.6 (0.5-0.9) mg/dL Glucose 142 H (65-115) mg/dL Calculated Osmolal ity 285 (285-295) mOsm/k g Calcium 9.4 (8.5-10.5) mg/dL Total Bilirubin 0.3 (0.15-1.2) mg/dL AST 21 (0-32) U/L ALT 14 (0-33) U/L Alkaline Phosphata se 88 (35-105) IU/L Creatine Kinase 91 (26-192) U/L Total Protein 6.0 L (6.6-8.7) g/dL Albumin 3.9 (3.5-5.2) g/dL Globulin 2.1 (1.3-4.6) g/dL Urine Color (Yellow) Urine Appearance (CLEAR) Urine pH (5-7) Ur Specific Gravit y (1.005-1.030) Urine Protein (Negative) Urine Glucose (UA) (Normal) Urine Ketones (Negative) Urine Blood (Negative) Urine Nitrate (Negative) Urine Bilirubin (NEGATIVE) Urine Urobilinogen (Negative) mg/dL Ur Leukocyte Vicki ase (Negative) Blood Type Rho(D) Type Antibody Screen Antibody Identific ation Crossmatch 09/12/19 09/12/19 Range/Units 10:40 10:54 WBC (4.0-10.0) 10^3/ uL RBC (4.1-5.3) 10^6/u L Hgb (11.5-15.3) g/dL Hct (37.0-47.0) % MCV (81-99) fL MCH (28.0-34.0) pg MCHC (30.0-36.0) g/dL RDW (12.1-15.1) % Plt Count (130-400) 10^3/c mm MPV (7.4-10.4) fL Neut % (Auto) % Lymph % (Auto) % Rock % (Auto) % Eos % (Auto) % Baso % (Auto) % Neut # (Auto) (1.8-7.7) 10^3/u L Lymph # (Auto) (0.8-4.8) 10^3/u L Rock # (Auto) (0.2-0.9) 10^3/u L Eos # (Auto) (0.0-0.8) 10^3/u L Baso # (Auto) (0.0-0.1) 10^3/u L Nucleated RBC % (a uto) % Nucleated RBCs # /100WBC PT (10.5-13.3) SECO NDS INR (0.8-1.2) APTT (23.9-36.7) SECO NDS Sodium (136-145) mmol/L Potassium (3.5-5.1) mmol/L Chloride (98-107) mmol/L Carbon Dioxide (22-29) mmol/L Anion Gap (5-19) BUN (8-23) mg/dL Creatinine (0.5-0.9) mg/dL Glucose (65-115) mg/dL Calculated Osmolal ity (285-295) mOsm/k g Calcium (8.5-10.5) mg/dL Total Bilirubin (0.15-1.2) mg/dL AST (0-32) U/L ALT (0-33) U/L Alkaline Phosphata se (35-105) IU/L Creatine Kinase (26-192) U/L Total Protein (6.6-8.7) g/dL Albumin (3.5-5.2) g/dL Globulin (1.3-4.6) g/dL Urine Color Straw (Yellow) Urine Appearance Clear (CLEAR) Urine pH 6 (5-7) Ur Specific Gravit y 1.015 (1.005-1.030) Urine Protein Neg (Negative) Urine Glucose (UA) Norm (Normal) Urine Ketones Negative (Negative) Urine Blood Neg (Negative) Urine Nitrate Negative (Negative) Urine Bilirubin Neg (NEGATIVE) Urine Urobilinogen Norm (Negative) mg/dL Ur Leukocyte Vicki ase Negative (Negative) Blood Type A Negative Rho(D) Type Negative Antibody Screen Positive Antibody Identific ation Anti-D Crossmatch See Detail Discharge Plan Discharge Patient Disposition: Admitted As Inpatient Admit Provider: Sendy Edwards Clinical Impression: Intertrochanteric fracture of right hip, Dementia, COPD (chronic obstructive pulmonary disease), Anxiety Condition: Stable Discharge Orders: Discharge Order (Routine); Ordered 09/14/19 Ordered By: Sendy Edwards Discharge Diet: Advance as tolerated and Regular Discharge Activity: As per PT/OT instructions and Oxygen as instructed Interventions: ED Discharge Assessment Last Done: 09/12/19 13:34 ED Charges Last Done: 09/12/19 13:34 Discharge Date/Time: 09/12/19 13:36 Coding Level of Care Code ED Radio Station Operator for Alena Fwd Exam Comprehensive
--- NOTE | 2019-09-12 10:32 | XR_ITS ---
WS: [id number] XR chest 1V portable [id number] REASON FOR EXAM: dyspnea/cough FINDINGS: Hyper aerated lung posada are seen with flattenings of the hemidiaphragm similar to June 272019. There is interstitial fibrosis also seen. The heart was normal there is arteriosclerotic changes seen. There is no pneumonia, pleural effusion, pulmonary edema, or mass effect. The hilum and apices are normal. XR/XR chest 1V portable [id number] IMPRESSION: Moderately advanced chronic obstructive pulmonary disease.
--- NOTE | 2019-09-12 10:32 | ECG_ITS ---
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 Measurements Intervals Juliette Rate: 67 P: 80 OK: 142 QRS: 82 QRSD: 98 T: 51 QT: 416 QTc: 442 Interpretive Statements SINUS RHYTHM NONSPECIFIC T-WAVE ABNORMALITY Compared to ECG 07/18/2019 13:07:43 Sinus arrhythmia no longer present Short OK interval no longer present T-wave abnormality still present Electronically Signed On 09-12-2019 19:20:13 CDT by Norah Marin M.D. [id number]
[2019-09-12] MEDS: ondansetron 2 mg/ML SDV 2 mL 4 MG IVP ×3 (10:42→21:37)
[2019-09-12] MEDS: morphine 4 mg/mL SDV 1 mL IVP ×2 (10:43→11:43)
[2019-09-12] MEDS: sodium chloride 0.9% 1,000 ML 999 ML IV (10:47)
[2019-09-12 10:50] LABS: Basophils # 0.1 10^3/uL (0.0-0.1); Basophils % 0.7 %; Eosinophils # 0.2 10^3/uL (0.0-0.8); Eosinophils % 2.9 %; Hematocrit 36.6 % (37.0-47.0); Hemoglobin 11.6 g/dL (11.5-15.3); Lymphocytes # 1.3 10^3/uL (0.8-4.8); Mean Corpuscular HGB Conc 31.7 g/dL (30.0-36.0); Mean Corpuscular Hemoglobin 29.8 pg (28.0-34.0); Mean Corpuscular Volume 94.1 fL (81-99); Mean Platelet Volume 9.6 fL (7.4-10.4); Monocytes # 0.5 10^3/uL (0.2-0.9); Monocytes % 5.4 %; Neutrophils # 6.3 10^3/uL (1.8-7.7); Neutrophils % 75.6 %; Nucleated Red Blood Cells % 0 %; Platelet Count 267 10^3/cmm (130-400); Red Blood Count 3.89 10^6/uL (4.1-5.3); Red Cell Distribution Width 14.2 % (12.1-15.1); White Blood Count 8.3 10^3/uL (4.0-10.0)
[2019-09-12 10:57] LABS: Add Urine Microscopic? NO
[2019-09-12 11:02] LABS: Bilirubin Urine Neg (NEGATIVE); Blood Urine Neg (Negative); Glucose Urine UA Norm (Normal); Ketones Urine Negative (Negative); Leukocyte Esterase Urine Negative (Negative); Nitrate Urine Negative (Negative); Protein Urine Neg (Negative); Specific Gravity, Urine 1.015 (1.005-1.030); Urine Appearance Clear (CLEAR); Urine Color Straw (Yellow); Urobilinogen Urine Norm (Negative); pH Urine 6 (5-7)
[2019-09-12 11:05] LABS: Alanine Aminotransferase 14 U/L (0-33); Albumin Level 3.9 g/dL (3.5-5.2); Alkaline Phosphatase 88 IU/L (35-105); Anion Gap 19.5 (5-19); Aspartate Amino Transferase 21 U/L (0-32); Blood Urea Nitrogen 14 mg/dL (8-23); Calcium 9.4 mg/dL (8.5-10.5); Carbon Dioxide 22 mmol/L (22-29); Chloride 101 mmol/L (98-107); Creatine Phosphokinase 91 U/L (26-192); Creatinine Clr Calc Pharmacy 46.0647; Globulin 2.1 g/dL (1.3-4.6); Glucose 142 mg/dL (65-115); Osmolality Calculated 285 mOsm/kg (285-295); Potassium 4.5 mmol/L (3.5-5.1); Sodium 138 mmol/L (136-145); Total Bilirubin 0.3 mg/dL (0.15-1.2)
--- NOTE | 2019-09-12 11:30 | XR_ITS ---
WS: [id number] XR hip RT 2-3V wo/w pel* [id number] REASON FOR EXAM: fall/trauma FINDINGS: Intertrochanteric fracture is noted. Positioning is fairly satisfactory. Joint on the right is normal. No fractures of the visible pelvis are seen . IMPRESSION: Intertrochanteric fracture of the right hip.
[2019-09-12] MEDS: metoclopramide 5 mg/mL SDV 2 mL IVP (11:42)
[2019-09-12] MEDS: sodium chlor 0.9% + KCl 20 mEq 20 MEQ/1,000 ML BAG 125 MEQ IV (11:46)
--- NOTE | 2019-09-12 11:56 | PC.NURSE ---
Patient O2 saturation dropped after administering 4 of morphine. Patient placed on 3L via NC .
[2019-09-12 12:47] LABS: INR 0.92 (0.8-1.2)
[2019-09-12 12:48] LABS: Partial Thromboplastin Time 25.8 SECONDS (23.9-36.7)
--- NOTE | 2019-09-12 13:25 | P.HP_ITS ---
Providers/Chief Complaint Admitting Physician: Sendy Edwards DO Primary Care Provider: Shayy Hayden MD Chief Complaint: fall, hip pain History of Present Illness Deja Fletcher is a 74 year old female with a past medical history of COPD, dementia and anxiety that presented to the emergency department today after a fall. Her is present at bedside and reported the patient was sitting at the kitchen table when she got up to use the restroom and lost her footing and fell onto the floor. She was noted to have significant pain and brought to the ER for further evaluation and treatment. Most of the HPI was obtained from the patient's due to patient's underlying dementia and receiving pain medication for her hip pain. Patient denies any palpitations, no lig htheadedness or dizziness prior to this event. reports that it appeared to be mechanical fall in nature. No recent illness, no fever or chills. No exposure to COVID-19, reports that they have been staying at home and they have not been out to any public places. Patient was seen and evaluated in the emergency department noted to have concern for right intertrochanteric hip fracture, orthopedic surgeon was called and patient was admitted to the hospital for further evaluation and treatment. Review of Systems General: Reports: Other (Able to obtain some review of systems however difficult to obtain full review of systems due to underlying dementia.) Const: Denies: fever(s) or chills Eyes: Denies: change in vision Card: Denies: chest pain, palpitations or edema Resp: Denies: dyspnea, productive cough or hemoptysis GI: Reports: nausea; Denies: abdominal pain, vomiting, diarrhea, constipation, hematochezia or melena : Denies: dysuria or hematuria Musc: Reports: extremity pain; Denies: muscle cramps Skin/Breast: Denies: rash or new lesions Neuro: Denies: headache(s) or dizziness Psych: Denies: anxiety or depression Endo: Denies: polyuria or hot flashes Thomas/Lymph: Reports: easy bruising; Denies: easy bleeding Medications/Allergies Home Medications Medication Instructions Recorded Confirmed Last Taken Type albuterol sulfate 2 puff INHALATION QID PRN 05/22/19 09/12/19 09/12/19 History aspirin 81 - 162 mg PO DAILY 05/22/19 09/12/19 09/11/19 History donepezil 10 mg PO DAILY 05/22/19 09/12/19 09/11/19 History fluticasone propion-salmeterol 1 ea INHALATION BID 05/22/19 09/12/19 09/12/19 History [Wixela Inhub] ipratropium-albuterol 3 ml INHALATION Q6H PRN 05/22/19 09/12/19 09/12/19 History lorazepam 0.5 mg PO BID PRN 07/18/19 09/12/19 Unknown History venlafaxine 150 mg PO DAILY 07/18/19 09/12/19 09/11/19 History quetiapine [Seroquel] 25 mg PO BEDTIME 09/12/19 09/12/19 09/11/19 History Allergies Allergy/AdvReac Type Severity Reaction Status Date / Time No Known Allergies Allergy Verified 05/22/19 06:32 PFSH Acute PFSH: Medical History Anxiety COPD (chronic obstructive pulmonary disease) Dementia Surgical History History of hysterectomy Family History (Updated 09/12/19 @ 13:32 by Sendy Edwards DO) Mother CAD (coronary artery disease) Social History Smoking and tobacco status: former smoker Supplemental PFSH Information: Patient goes by her middle name Lexi Vitals/I&O/Wt Last Vital Signs Temp 97.5 F L 09/12/19 09:57 Pulse 80 09/12/19 13:14 Resp 20 H 09/12/19 13:14 BP 199/75 09/12/19 13:14 Pulse Ox 99 09/12/19 13:14 Weight last 48 hrs Weight 43.091 kg Physical Exam Const: COMMON NORMALS: alert GENERAL APPEARANCE: cooperative ORIENTATION/CONSCIOUSNESS: Yes awake and Yes oriented to person HENMT: COMMON NORMALS: normocephalic and atraumatic HEAD & SCALP: normocephalic and atraumatic Eye: COMMON NORMALS: Equal, round and reactive pupils present PUPIL: Yes Equal, round and reactive pupils present Neck/C-Spine: COMMON NORMALS: supple GENERAL: Yes normal visual inspection Resp: COMMON NORMALS: normal respiratory effort and clear to auscultation bilaterally EFFORT & INSPECTION: Yes able to speak in complete sentences AUSCULTATION: clear to auscultation bilaterally, no rhonchi and no wheezes Cardio: COMMON NORMALS: regular rate, regular rhythm and No murmurs present ( Cardio) RATE: regular rate RHYTHM: regular rhythm GI: COMMON NORMALS: Soft to palpation and non-tender INSPECTION: No abdominal distension AUSCULTATION: Yes normoactive bowel sounds PALPATION: Yes Soft to palpation Extremity: COMMON NORMALS: no clubbing, cyanosis or edema and no calf tenderness NARRATIVE EXTREMITY EXAM: tenderness to palpation over R hip with external rotation of R hip Neuro: COMMON NORMALS: CN's II-XII intact bilaterally, moves all extremities and no focal motor deficits SENSORIUM/ORIENTATION: Yes alert and Yes oriented to person SPEECH: speech normal Psych: COMMON NORMALS: cooperative OTHER: Underlying dementia Skin: NARRATIVE SKIN EXAM: Bruising over the R arm/forearm dry flaky rash over R hip Urinary Catheter Management^: Casillas: Cath Placed During This Visit: yes Reason for Continuing Indwelling Catheter: Other Urinary Catheter Date of Insertion: 09/12/19 Urinary Catheter Time of Insertion: 10:54 Data : 09/12/19 10:40 09/12/19 10:40 CXR: I personally reviewed and interpreted this imaging study as follows: Radiologist's impression: FINDINGS: Hyper aerated lung posada are seen with flattenings of the hemidiaphragm similar to July 18, 2019. There is interstitial fibrosis also seen. The heart was normal there is arteriosclerotic changes seen. There is no pneumonia, pleural effusion, pulmonary edema, or mass effect. The hilum and apices are normal. XR/XR chest 1V portable [id number] IMPRESSION: Moderately advanced chronic obstructive pulmonary disease. Xray Ortho: I personally reviewed and interpreted this imaging study as follows: Radiologist's impression: FINDINGS: Intertrochanteric fracture is noted. Positioning is fairly satisfactory. Joint on the right is normal. No fractures of the visible pelvis are seen . IMPRESSION: Intertrochanteric fracture of the right hip. A&P Assessment and plan (1) Intertrochanteric fracture of right hip: Dr. Ruiz, orthopedic surgeon consulted by ED provider. Appreciate consultation and assistance in patient's care Plan for surgical fixation NPO at this time until OR time can be properly arranged PT/OT Case management consultation as patient will likely require SNF placement Sitter ordered due to patient's underlying dementia and do not wish for her to have any further falls Status: Acute (2) Anxiety: On lorazepam 0.5mg BID PRN Seroquel 25mg at bedtime Venlafaxine 150mg PO daily Status: Acute (3) COPD (chronic obstructive pulmonary disease): Without acute exacerbation Oxygen per protocol RTAT Patient is on home oxygen 3L by NC at baseline, mostly at night but during the day as needed Status: Acute (4) Dementia: Appears to be at baseline per Close monitoring and sitter due to hip fracture as noted above Status: Acute Additional A&P Information Diet: N.p.o. for anticipated procedure DVT prophylaxis: SCDs, no pharmacologic prophylaxis until following the procedure CODE STATUS: Full code, this was discussed with patient's Attestations Medical Necessity Statement*: Hospitalization due to fall with intertrochanteric hip fracture. 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
[2019-09-12] MEDS: dextrose 5%-sod chloride 0.45% 1,000 ML 50 ML IV ×2 (13:50→23:32)
--- NOTE | 2019-09-12 13:50 | PC.NURSE ---
#16 [place] Casillas placed in the ER. Patient had it upon arrival to the floor at 1350.
--- NOTE | 2019-09-12 15:56 | PC.NURSE ---
Patient to surgery at this time.
--- NOTE | 2019-09-12 16:10 | P.ANESASSM_ITS ---
Pre-Anesthetic Assessment Pre-Anesthetic Assessment: Height/Weight: Height 1.57 m Weight 43.091 kg Temp Pulse Resp BP Pulse Ox 97.6 F 67 16 188/73 100 09/12/19 16:03 09/12/19 16:03 09/12/19 16:03 09/12/19 16:03 09/12/19 16:03 Preop Diagnosis: Right intertrochanteric hip fracture Proposed Procedure: Operation Date: 09/12/19 16:30 Proposed Procedures p Trochanteric Femoral Nail(Right) - Lexi Ruiz MD Last intake: Intake Last Liquid Date 09/11/19 Last Liquid Time 22:00 Last Solid Date 09/11/19 Last Solid Time 20:00 Social: Social History: Tobacco (quit) and No alcohol Exam: Pre-Anes Outpt Exam: alert, clear to auscultation bilaterally and regular rate & rhythm Additional Exam Findings (including area of procedure): pt confused Airway: Submandibular: WNL Cervical ROM: WNL MP: 1 Dentition: False (upper and lower) History/ROS: No significant history except as noted Pulmonary: Pulmonary: COPD and GUPTA CV/HEM: CV/HEM: None reported : : None reported Hepatic: Hepatic: None reported GI: GI: None reported Metabolic: Metabolic: None reported Musc/skel: Musc/skel: OA/DJD Neuropsych: Neuropsych: Anxiety and Dementia Anesthetic Plan: ASA status: 3 Anesthesia: Anesthesia Evaluation and General Risk of > 500 ml blood loss (7ml/kg in children): No Meds/Allergies Current Medications: Current Medications Generic Name Dose Route Start Last Admin Trade Name Freq PRN Reason Stop Dose Admin Dextrose/Sodium Ch loride 1,000 mls @ 50 ml s/hr 09/12/19 13:42 09/12/19 13:50 Dextrose 5%-Sod Chloride 0.45% IV 50 mls/hr .Q20H KITTY Administration PFSH Anesthesia PFSH: Medical History Anxiety COPD (chronic obstructive pulmonary disease) Dementia Surgical History History of hysterectomy Family History (Updated 09/12/19 @ 13:32 by Sendy Edwards DO) Mother CAD (coronary artery disease) Social History Smoking and tobacco status: former smoker Supplemental [facility] Information: Patient goes by her middle name Lexi Delgado Anesthesia CBC & Chem 7: 09/12/19 10:40 09/12/19 10:40 Other Labs: Laboratory Results - last 48 hr 09/12/19 09/12/19 09/12/19 10:40 10:40 10:40 WBC 8.3 RBC 3.89 L Hgb 11.6 Hct 36.6 L MCV 94.1 MCH 29.8 MCHC 31.7 RDW 14.2 Plt Count 267 MPV 9.6 Neut % (Auto) 75.6 Lymph % (Auto) 15.0 [place] % (Auto) 5.4 Eos % (Auto) 2.9 Baso % (Auto) 0.7 Neut # (Auto) 6.3 Lymph # (Auto) 1.3 [place] # (Auto) 0.5 Eos # (Auto) 0.2 Baso # (Auto) 0.1 Nucleated RBC % (auto) 0 Nucleated RBCs # 0.0 PT 12.60 INR 0.92 APTT 25.8 Sodium 138 Potassium 4.5 Chloride 101 Carbon Dioxide 22 Anion Gap 19.5 H BUN 14 Creatinine 0.6 Glucose 142 H Calculated Osmolality 285 Calcium 9.4 Total Bilirubin 0.3 AST 21 ALT 14 Alkaline Phosphatase 88 Creatine Kinase 91 Total Protein 6.0 L Albumin 3.9 Globulin 2.1 Urine Color Urine Appearance Urine pH Ur Specific [place] Urine Protein Urine Glucose (UA) Urine Ketones Urine Blood Urine Nitrate Urine Bilirubin Urine Urobilinogen Ur Leukocyte Esterase 09/12/19 10:54 WBC RBC Hgb Hct MCV MCH MCHC RDW Plt Count MPV Neut % (Auto) Lymph % (Auto) [place] % (Auto) Eos % (Auto) Baso % (Auto) Neut # (Auto) Lymph # (Auto) [place] # (Auto) Eos # (Auto) Baso # (Auto) Nucleated RBC % (auto) Nucleated RBCs # PT INR APTT Sodium Potassium Chloride Carbon Dioxide Anion Gap BUN Creatinine Glucose Calculated Osmolality Calcium Total Bilirubin AST ALT Alkaline Phosphatase Creatine Kinase Total Protein Albumin Globulin Urine Color Straw Urine Appearance Clear Urine pH 6 Ur Specific [place] 1.015 Urine Protein Neg Urine Glucose (UA) Norm Urine Ketones Negative Urine Blood Neg Urine Nitrate Negative Urine Bilirubin Neg Urine Urobilinogen Norm Ur Leukocyte Esterase Negative Cardiac Studies: No Data to Display
[2019-09-12] MEDS: sodium chloride 0.9% 1,000 ML 30 ML IV (16:11)
--- NOTE | 2019-09-12 17:33 | P.CONIM_ITS ---
Providers/Reason For Consult Consulting Physican/Specialty*: Lexi Ruiz MD - Orthopedics Reason for Consult*: Right Intertrochanteric Hip Fracture Requesting Physcian: Dr. Rohan Perez Attending Physician: Sendy Edwards DO Primary Care Provider: Shayy Hayden MD History of Present Illness History of Present Illness Deja Fletcher is a 74 year old female who presented to the emergency department with complaints of right hip pain and inability to ambulate. The patient sufferedPresented to the emergency department with complaints of right hip pain and inability to ambulate. The patient suffers with dementia, but she lives at home under her 's care. When she presented to the emergency department, she was unable to answer questions appropriately. According to the , the patient was sitting at the kitchen table, and she got up to use the restroom. She reportedly lost her footing and fell. There is no evidence that she experienced any sort of lightheadedness or dizziness prior to the event. Review of Systems General: Reports: ROS unobtainable due to mental status (Underlying dementia. Review of systems outlined in hospitalist H&P.) Meds/Allergies Home Medications and Allergies Home Medications Medication Instructions Recorded Confirmed Last Taken Type albuterol sulfate 2 puff INHALATION QID PRN 05/22/19 09/12/19 09/12/19 History aspirin 81 - 162 mg PO DAILY 05/22/19 09/12/19 09/11/19 History donepezil 10 mg PO DAILY 05/22/19 09/12/19 09/11/19 History fluticasone propion-salmeterol 1 ea INHALATION BID 05/22/19 09/12/19 09/12/19 History [Wixela Inhub] ipratropium-albuterol 3 ml INHALATION Q6H PRN 05/22/19 09/12/19 09/12/19 History lorazepam 0.5 mg PO BID PRN 07/18/19 09/12/19 Unknown History venlafaxine 150 mg PO DAILY 07/18/19 09/12/19 09/11/19 History quetiapine [Seroquel] 25 mg PO BEDTIME 09/12/19 09/12/19 09/11/19 History Allergies Allergy/AdvReac Type Severity Reaction Status Date / Time No Known Allergies Allergy Verified 05/22/19 06:32 Current Medications Current Medications Generic Name Dose Route Start Last Admin Trade Name Tony PRN Reason Stop Dose Admin Dextrose/Sodium Chloride 1,000 mls @ 50 mls/hr 09/12/19 13:42 09/12/19 13:50 Dextrose 5%-Sod Chloride 0.45% IV 50 mls/hr .Q20H KITTY Administration Sodium Chloride 1,000 mls @ 30 mls/hr 09/12/19 16:00 09/12/19 16:11 Sodium Chloride 0.9% IV 09/13/19 15:59 30 mls/hr .Q24H KITTY Administration PFSH Acute PFSH: Medical History Anxiety COPD (chronic obstructive pulmonary disease) Dementia Surgical History History of hysterectomy Family History (Updated 09/12/19 @ 13:32 by Sendy Edwards DO) Mother CAD (coronary artery disease) Social History Smoking and tobacco status: former smoker Vitals/I&O/Wt Last Vital Signs Temp 97.6 F 09/12/19 16:03 Pulse 67 09/12/19 16:03 Resp 16 09/12/19 16:03 BP 188/73 09/12/19 16:03 Pulse Ox 100 09/12/19 16:26 09/12/19 09/12/19 09/12/19 06:59 14:59 22:59 Intake Total 100 / 100 Balance 100 / 100 Weight last 48 hrs Weight 84 lb 12.8 oz Weight 95 lb Physical Exam Const: COMMON NORMALS: no acute distress and average body habitus GENERAL APPEARANCE: cooperative HENMT: COMMON NORMALS: normocephalic and atraumatic HEAD & SCALP: normocephalic and atraumatic Chest: COMMONS NORMALS: normal inspection of the chest Resp: COMMON NORMALS: normal respiratory effort EFFORT & INSPECTION: Yes symmetric chest movement Extremity: RIGHT LOWER EXTREMITY: Yes hip joint (Pain to range of motion. The patient's neurologically intact.) Right hip: Yes inspection (No lesions are noted.) and Yes ROM (Not evaluated secondary to fracture) Psych: APPEARANCE: Yes grossly normal ATTITUDE: Yes calm Skin: COMMON NORMALS: no rashes or lesions noted GENERAL SKIN EXAM: no rashes or lesions noted Urinary Catheter Management^: Casillas: Cath Placed During This Visit: yes Reason for Continuing Indwelling Catheter: Other Urinary Catheter Date of Insertion: 09/12/19 Urinary Catheter Time of Insertion: 10:54 Data Labs: Other Labs: Urinalysis is reviewed and is negative for evidence of abnormality abnormalityurinalysis is reviewed and is negative for evidence of Imaging^: Xray Ortho: I personally reviewed and interpreted this imaging study as follows: My impression: Right intertrochanteric hip fracture with minimal displacement. A&P Assessment and plan (1) Intertrochanteric fracture of right hip: The patient will be taken to the operating room for open reduction internal fixation of her right intertrochanteric hip fracture. Surgery consent is obtained from the . The patient's dementia precludes her being able to answer questions and consent for the surgery herself. The patient has been optimized for surgery per the hospitalist. Status: Acute (2) Dementia: Status: Acute Consult Attestations Medical Necessity Statement: Per Hospitalist Service Coding Level of Care Code Acute Duct Layer Supervisor for [facility] Fw[place]ony Diagnoses Intertrochanteric fracture of right hip S72.141A Dementia F03.90
--- NOTE | 2019-09-12 18:57 | SUR.OPER ---
1846 patient's updated of surgical status
[2019-09-12] MEDS: ceFAZolin 1,000 mg SDV 1000 MG IRRIGATION (19:16)
--- NOTE | 2019-09-12 19:50 | P.OP_ITS ---
Operative Report Date of procedure: September 12, 2019 Pre-op Diagnosis: Right intertrochanteric hip fracture Post-op diagnosis: same Procedure Done: Open reduction internal fixation right intertrochanteric hip fracture utilizing the Anurag gamma nail system with a size 11 x 180 x 125 degree gamma 3 trochanteric nail, a size 10 mm x 75 mm lag screw and a 5 mm x 32.5 mm distal locking screw Specimens removed/disposition: None Pathology: none sent Water Resources Program Director: [facility] [place] Anesthesia: General (Per LMA) Estimated blood loss (mL): 50 IV fluids (mL): 500 Urine output (mL): 200 Complications: None Findings: Intertrochanteric hip fracture, displaced. Condition: stable Disposition: PACU (Then return to floor for postoperative rehabilitation and pain management) Brief History: This 74-year-old woman who unfortunately suffers with dementia fell at home when she got up to go to the bathroom. She was there with her . She was brought to the hospital where she was found to have an intertrochanteric right hip fracture. She was admitted to the hospital and as she had not eaten throughout the day, plans were made for surgical intervention after she had been optimized by the medical service. Risks and complications were discussed with the and the patient was scheduled for the above surgery. Procedure: Patient is brought to the operating theater. After undergoing adequate general anesthesia with LMA , the patient was transferred to the fracture table, positioned on the table and fluoroscopic guidance obtained throughout the surgical procedure. Prior to the commencement of the surgical procedure, a surgical pause was performed. At the time of the surgical pause, we confirmed the site and side of surgery as well as preoperative surgical markings and appropriate and timely administration of IV antibiotics, Ancef, 2g. Availability of equipment was also confirmed. Fluoroscopy was used to confirm the fracture was appropriately reduced in both AP and lateral planes. An incision was then made slightly above the greater trochanter to allow access to the greater trochanter. An awl was used to enter the greater trochanter and a guidewire was subsequently placed. Once the guidewire was confirmed to be in appropriate position in AP and lateral planes, reaming was accomplished over this to allow for the proximal diameter of the nail. Guidewire was then removed. An 11 mm nail was placed into appropriate position with positioning being confirmed in AP and lateral planes on the x-ray. It passed without difficulty. Guidewire was then passed through the jigging system into the femoral head. We wanted to be center or slightly inferior and posterior to center. Guidewire was placed into appropriate position. Once the guidewire was in appropriate position and this position was confirmed by x-ray. This was then measured and we chose a 75 mm lag screw. We reamed to allow for the lag screw to be placed. The 75 mm lag screw was then passed into the femoral head through the trochanteric nail. This was passed uneventfully and again position was confirmed in AP and lateral planes. Compression was obtained under fluoroscopic guidance. The set screw was then placed in position, tightened completely, and subsequently backed off one-quarter turn. The construct was left in position and attention was directed distally. Cannulas were again used to determine appropriate placement for the distal screw. This was placed in position without difficulty. It was measured off of the drill. The appropriate length screw was then obtained and placed in position without difficulty. Once the screw was in position, we confirmed appropriate placement of the components, and we removed the jigging system. Attention was then directed to closure. The hip was copiously irrigated with normal saline with antibiotics. Following this it was dried and closed. Tensor fascia maria teresa was closed proximally with 0 Vicryl in an interrupted fashion. Subcutaneous tissues were closed with 2-0 Monocryl, and the skin was closed with a continuous 3-0 Monocryl subcuticular stitch. This was then covered with Exofin and Tegaderm. The patient was removed from the fracture table and returned to recovery in satisfactory condition. The patient will be discharged to the floor for postoperative rehabilitation and pain management. There were no specimens obtai nicole.
[2019-09-12] MEDS: hyDRALAzine 20 mg/mL INJ 1 mL 5 MG IVP (20:12)
--- NOTE | 2019-09-12 20:44 | PC.NURSE ---
pt brought back from or, dressing to right hip x3 dry and intact. No complaints of pain at this time.
--- NOTE | 2019-09-12 20:52 | XR_ITS ---
WS: [id number] XR hip RT 2-3V wo/w pel* [id number] REASON FOR EXAM: OR PICS FINDINGS: C-arm images intraoperative show insertion of a gamma nail through the intertrochanteric fr acture at the conclusion the alignment is satisfactory. XR/XR hip RT 2-3V wo/w pel* [id number] IMPRESSION: Internal fixation of these intertrochanteric fracture with a gamma nail satisfa ctory place.
[2019-09-12] MEDS: LORazepam 0.5 mg Tablet PO (22:08)
[2019-09-12] MEDS: quetiapine 25 mg Tablet PO (22:08)
[2019-09-12] MEDS: ipratropium-albuterol 3 mL Neb INHALATION (22:53)
[2019-09-13] VITALS (15 sets, daily range): BP systolic 89–119; BP diastolic 42–63; PULSE 70–85; RESP 16–30; TEMP 36.7–37.2; O2SAT 85–100
--- NOTE | 2019-09-13 04:52 | PC.NURSE ---
bp rechecked 95/56 with map 69 at this time. no complaints from pt.
[2019-09-13 06:00] LABS: Basophils % 0.4 %; Eosinophils % 0.2 %; Hematocrit 28.3 % (37.0-47.0); Hemoglobin 8.8 g/dL (11.5-15.3); Lymphocytes # 0.5 10^3/uL (0.8-4.8); Lymphocytes % 9.1 %; Mean Corpuscular HGB Conc 31.1 g/dL (30.0-36.0); Mean Corpuscular Hemoglobin 29.7 pg (28.0-34.0); Mean Corpuscular Volume 95.6 fL (81-99); Mean Platelet Volume 10.2 fL (7.4-10.4); Monocytes # 0.4 10^3/uL (0.2-0.9); Monocytes % 7.6 %; Neutrophils # 4.5 10^3/uL (1.8-7.7); Neutrophils % 82.3 %; Nucleated Red Blood Cells % 0 %; Platelet Count 140 10^3/cmm (130-400); Red Blood Count 2.96 10^6/uL (4.1-5.3); White Blood Count 5.4 10^3/uL (4.0-10.0)
[2019-09-13 06:03] LABS: Partial Thromboplastin Time 28.2 SECONDS (23.9-36.7)
[2019-09-13 06:11] LABS: Alanine Aminotransferase 16 U/L (0-33); Albumin Level 3.2 g/dL (3.5-5.2); Alkaline Phosphatase 74 IU/L (35-105); Anion Gap 14.1 (5-19); Aspartate Amino Transferase 22 U/L (0-32); Blood Urea Nitrogen 11 mg/dL (8-23); Calcium 8.2 mg/dL (8.5-10.5); Carbon Dioxide 24 mmol/L (22-29); Chloride 103 mmol/L (98-107); Globulin 2.3 g/dL (1.3-4.6); Glucose 134 mg/dL (65-115); Osmolality Calculated 282 mOsm/kg (285-295); Potassium 4.1 mmol/L (3.5-5.1); Sodium 137 mmol/L (136-145); Total Bilirubin 0.2 mg/dL (0.15-1.2); Total Protein 5.5 g/dL (6.6-8.7)
--- NOTE | 2019-09-13 06:23 | PC.NURSE ---
[place] removed at this time pt tolerated well.
--- NOTE | 2019-09-13 07:39 | ANE.PACU2 ---
Inpatient post-anesthesia follow up: Airway intact: Yes Vital signs: Temperature 98.9 F Pulse Rate [Monito r] 71 Pulse Rate 85 Respiratory Rate 24 Blood Pressure [Ri ght Arm] 113/55 Blood Pressure 96/46 Pulse Oximetry 99 Oxygen Delivery Me thod Nasal Cannula Oxygen Flow Rate 2 Fraction of Inspir ed Oxygen Hydration adequate: Yes Nausea and vomiting: No Mental status: Altered (confused)
[2019-09-13] MEDS: ipratropium-albuterol 3 mL Neb INHALATION ×3 (08:25→20:55)
--- NOTE | 2019-09-13 08:58 | PM.PN ---
Subjective Subjective: Interval history: Patient awake in bed at time of exam. She reported some soreness in her right hip. Nurse reported that patient was having some anxiety this morning. Patient denies any chest pain or shortness of breath. Is on oxygen by nasal cannula at time of exam. Vitals/I&O/Wt Last Vital Signs Temp 98.9 F 09/13/19 07:24 Pulse 85 09/13/19 07:24 Resp 24 H 09/13/19 07:24 BP 96/46 09/13/19 07:24 Pulse Ox 99 09/13/19 07:24 09/12/19 09/13/19 09/13/19 22:59 06:59 14:59 Intake Total 180 / 180 515 / 695 240 / 240 Output Total 250 / 250 380 / 630 Balance -70 / -70 135 / 65 240 / 240 Weight last 48 hrs Weight 38.465 kg Weight 43.091 kg Physical Exam Const: COMMON NORMALS: alert GENERAL APPEARANCE: cooperative ORIENTATION/CONSCIOUSNESS: Yes awake and Yes oriented to person HENMT: COMMON NORMALS: normocephalic and atraumatic HEAD & SCALP: normocephalic and atraumatic Eye: COMMON NORMALS: Equal, round and reactive pupils present PUPIL: Yes Equal, round and reactive pupils present Neck/C-Spine: COMMON NORMALS: supple GENERAL: Yes normal visual inspection Resp: COMMON NORMALS: normal respiratory effort and clear to auscultation bilaterally EFFORT & INSPECTION: Yes able to speak in complete sentences AUSCULTATION: clear to auscultation bilaterally, no rhonchi and no wheezes Cardio: COMMON NORMALS: regular rate, regular rhythm and No murmurs present (Cardio) RATE: regular rate RHYTHM: regular rhythm GI: COMMON NORMALS: Soft to palpation and non-tender INSPECTION: No abdominal distension AUSCULTATION: Yes normoactive bowel sounds PALPATION: Yes Soft to palpation Extremity: COMMON NORMALS: no clubbing, cyanosis or edema and no calf tenderness NARRATIVE EXTREMITY EXAM: Postoperative changes to the right hip Neuro: COMMON NORMALS: CN's II-XII intact bilaterally, moves all extremities and no focal motor deficits SENSORIUM/ORIENTATION: Yes alert and Yes oriented to person SPEECH: speech normal Psych: COMMON NORMALS: cooperative OTHER: Underlying dementia Skin: NARRATIVE SKIN EXAM: Postoperative changes to the right hip Urinary Catheter Management^: Casillas: Cath Placed During This Visit: yes, but has since been removed by the nurse Reason for Continuing Indwelling Catheter: Perioperative Use in Selected Surgeries Urinary Catheter Date of Insertion: 09/12/19 Urinary Catheter Time of Insertion: 10:54 Date Urinary Catheter Removed: 09/13/19 Time Urinary Catheter Discontinued: 06:24 Data : 09/13/19 05:06 09/13/19 05:06 A&P Assessment and plan (1) Intertrochanteric fracture of right hip: Dr. Ruiz, orthopedic surgeon consulted by ED provider. Appreciate consultation and assistance in patient's care Postop day #1 from open reduction internal fixation of right intertrochanteric hip fracture PT/OT Will likely require SNF placement Sitter ordered due to patient's underlying dementia and do not wish for her to have any further falls Status: Acute (2) Anxiety: On lorazepam 0.5mg BID PRN Seroquel 25mg at bedtime Venlafaxine 150mg PO daily Status: Acute (3) COPD (chronic obstructive pulmonary disease): Without acute exacerbation Oxygen per protocol RTAT Patient is on home oxygen 3L by [place] at baseline, mostly at night but during the day as needed Status: Acute (4) Dementia: Appears to be at baseline per Sitter due to hip fracture as noted above Status: Acute Additional A&P Information Postoperative anemia: Hemoglobin at 8.8 and blood pressure softer side today, likely secondary to pain medication but will continue to monitor closely. If hemoglobin continues to drop on recheck this afternoon will transfuse packed red blood cells. Diet: Regular diet with Ensure shakes DVT prophylaxis: Aspirin full strength per orthopedic surgery. CODE STATUS: Full code, this was discussed with patient's Attestations Medical Necessity Statement*: Patient requires continued hospitalization due to 2 fall with hip fracture requiring surgical repair and postoperative anemia with COPD and dementia Coding Level of Care Code Acute Carburetor Expert for [facility] Fwd Diagnoses Intertrochanteric fracture of right hip S72.141A Anxiety F41.9 COPD (chronic obstructive pulmonary disease) J44.9 Dementia F03.90
[2019-09-13] MEDS: aspirin 325 mg EC Tablet PO (09:36)
[2019-09-13] MEDS: LORazepam 0.5 mg Tablet PO ×2 (09:36→20:31)
[2019-09-13] MEDS: aspirin 81 mg Chew Tablet PO (09:36)
[2019-09-13] MEDS: acetaminophen 325 mg Tablet 650 MG PO ×2 (09:37→17:32)
[2019-09-13] MEDS: docusate sodium 100 mg Capsule PO ×2 (09:37→17:35)
[2019-09-13] MEDS: donepezil 5 MG Tablet 10 MG PO (09:37)
[2019-09-13] MEDS: venlafaxine ER (24HR) 150 mg Capsule PO (09:37)
--- NOTE | 2019-09-13 14:01 | PC.CHAP ---
Pastoral Care Encounter/Spiritual Assessment Type of Contact [] Declined oncology physician visit [] Patient/Family/Request visit [] Outpatient visit [] Follow-up visit [] Physician referral [] Code/Alert [X] Routine visit [] Staff referral [] Actively dying [] Patient sleeping [] Family support [] [] Out of room [] Palliative care [] [] Receiving care in room [] Pre-surgical visit [] Trauma [] Long length of stay [] ICU visit [] Other: Relational/Emotional Strength [] Patient feels connected with others/family/visitors/staff [] Distress [] Loneliness/isolation [] Abandonment Spirituality of Patient [] Person of Beth [] Attends Sikh of their Beth [] Believes in Prayer [] Reads Bible or Caodaism materials [] There are Spiritual issues to be addressed Drug And Alcohol Counselor Interventions [] Prayer [] Active listening [] Non-anxious presence [] Spiritual/emotional support [] Crisis/trauma care [] Spiritual counseling [] Bereavement support [] Provided bereavement packet [] Provided Bible/devotional materials [] Provided toy/stuffed animal, coloring book to patient or family member [] Provided Communion [] Anointing/[place] [] Salvation [] Completed spiritual assessment [] Other: Impact on Illness or Injury [] Angry [] Fearful [] Anxious [] Often cries [] Exhaustion [] Unable to work [] Unable to attend rastafari [] Unable to walk/stand [] Unable to read [] Unable to drive [] Unable to eat/drink [] Unable to sleep [] Unable to be with family [] Patient intubated [] Other: Summary Time spent with patient
[2019-09-13 14:18] LABS: Hematocrit 27.9 % (37.0-47.0); Hemoglobin 8.5 g/dL (11.5-15.3)
[2019-09-13 15:39] LABS: Estmated Average Glucose 100; Hemoglobin A1C 5.1 % (4.0-6.0)
--- NOTE | 2019-09-13 17:29 | P.PN_ITS ---
Subjective Subjective: Interval history: The patient is up in a chair and doing well. Plans are being made for her discharge to [facility]. Medications: Reviewed: Yes Vitals/I&O/Wt Last Vital Signs Temp 98.7 F 09/13/19 16:00 Pulse 81 09/13/19 16:00 Resp 20 H 09/13/19 16:00 BP 119/63 09/13/19 16:00 Pulse Ox 100 09/13/19 16:00 09/13/19 09/13/19 09/13/19 06:59 14:59 22:59 Intake Total 565 / 745 240 / 240 Output Total 380 / 630 300 / 300 Balance 185 / 115 240 / 240 -300 / -60 Weight last 48 hrs Weight 84 lb 12.8 oz Weight 95 lb Physical Exam Const: COMMON NORMALS: no acute distress and alert GENERAL APPEARANCE: cooperative and comfortable NUTRITIONAL APPEARANCE: thin ORIENTATION/CONSCIOUSNESS: Yes awake and Yes confused HENMT: COMMON NORMALS: normocephalic and atraumatic HEAD & SCALP: normocephalic and atraumatic Eye: GENERAL EYE: appearance normal, both eyes and all related structures Chest: COMMONS NORMALS: normal inspection of the chest Resp: COMMON NORMALS: normal respiratory effort EFFORT & INSPECTION: Yes symmetric chest movement Extremity: RIGHT LOWER EXTREMITY: Yes hip joint Right hip: Yes inspection (There is no significant swelling is nontender to palpation.) and Yes n eurovascular exam (Intact with no evidence of DVT.) Neuro: SENSORIUM/ORIENTATION: Yes alert Psych: ATTITUDE: Yes calm Skin: COMMON NORMALS: no rashes or lesions noted GENERAL SKIN EXAM: no rashes or lesions noted Urinary Catheter Management^: Casillas: Cath Placed During This Visit: yes, but has since been removed by the nurse Reason for Continuing Indwelling Catheter: Perioperative Use in Selected Surgeries Urinary Catheter Date of Insertion: 09/12/19 Urinary Catheter Time of Insertion: 10:54 Date Urinary Catheter Removed: 09/13/19 Time Urinary Catheter Discontinued: 06:24 Data : 09/13/19 14:08 09/13/19 05:06 A&P Assessment and plan (1) Intertrochanteric fracture of right hip: Patient underwent open reduction internal fixation. This occurred last evening. She is currently on the floor for postoperative medical management and early rehabilitation. The patient is allowed to be weightbearing as tolerated. Plan is that she will be discharged to long-term Status: Acute Attestations Medical Necessity Statement*: For postoperative rehabilitation and per the medical service. Coding Level of Care Code Acute Home Service Technician for [facility] Diagnoses Intertrochanteric fracture of right hip S72.141A
[2019-09-13] MEDS: fixodent 39 gm Tube 1 APPLIC DENTAL (17:31)
[2019-09-13] MEDS: ferrous sulfate EC 325 mg Tablet PO (17:34)
[2019-09-13] MEDS: dextrose 5%-sod chloride 0.45% 1,000 ML 50 ML IV (17:49)
[2019-09-13] MEDS: quetiapine 25 mg Tablet PO (20:31)
[2019-09-13 20:38] LABS: Glucose Point of Care 113 mg/dL (70-110)
[2019-09-14] VITALS (10 sets, daily range): BP systolic 111–146; BP diastolic 52–66; PULSE 16–93; RESP 16–22; TEMP 36.1–37.3; O2SAT 93–100
[2019-09-14 02:34] LABS: Basophils % 0.5 %; Eosinophils # 0.1 10^3/uL (0.0-0.8); Eosinophils % 1.2 %; Hematocrit 25.2 % (37.0-47.0); Hemoglobin 7.8 g/dL (11.5-15.3); Lymphocytes # 0.8 10^3/uL (0.8-4.8); Lymphocytes % 19.9 %; Mean Corpuscular Hemoglobin 30.1 pg (28.0-34.0); Mean Corpuscular Volume 97.3 fL (81-99); Mean Platelet Volume 9.8 fL (7.4-10.4); Monocytes # 0.4 10^3/uL (0.2-0.9); Monocytes % 9.7 %; Neutrophils # 2.9 10^3/uL (1.8-7.7); Neutrophils % 68.5 %; Nucleated Red Blood Cells % 0 %; Platelet Count 149 10^3/cmm (130-400); Red Blood Count 2.59 10^6/uL (4.1-5.3); Red Cell Distribution Width 14.1 % (12.1-15.1); White Blood Count 4.2 10^3/uL (4.0-10.0)
[2019-09-14] MEDS: acetaminophen 325 mg Tablet 650 MG PO ×2 (02:41→08:50)
[2019-09-14 02:55] LABS: Anion Gap 12.4 (5-19); Blood Urea Nitrogen 11 mg/dL (8-23); Calcium 8.4 mg/dL (8.5-10.5); Carbon Dioxide 25 mmol/L (22-29); Chloride 105 mmol/L (98-107); Glucose 113 mg/dL (65-115); Osmolality Calculated 285 mOsm/kg (285-295); Potassium 3.4 mmol/L (3.5-5.1); Sodium 139 mmol/L (136-145)
[2019-09-14 06:41] LABS: Glucose Point of Care 113 mg/dL (70-110)
[2019-09-14] MEDS: docusate sodium 100 mg Capsule PO (08:50)
[2019-09-14] MEDS: ferrous sulfate EC 325 mg Tablet PO ×2 (08:50→13:16)
[2019-09-14] MEDS: aspirin 325 mg EC Tablet PO (08:50)
[2019-09-14 11:31] LABS: Glucose Point of Care 130 mg/dL (70-110)
--- NOTE | 2019-09-14 12:48 | PM.DCS ---
Discharge Providers Date of Admission: 09/12/19 12:58 Date of Discharge: September 14, 2019 Attending Provider at Admission: Sendy Edwards DO Attending Provider at Discharge: Sendy Edwards DO Primary Care Provider: Shayy Hayden MD Diagnoses at Discharge Discharge Diagnosis (1) Intertrochanteric fracture of right hip: Status: Acute Reason for Visit Reason for Visit: fall, hip pain Hospital Course Hospital Course: Patient was seen and evaluated in the emergency department and admitted to the hospital for further evaluation after a mechanical fall that led to a right intertrochanteric hip fracture. Orthopedic surgeon, Dr. Vitale was consulted and patient was kept nothing to eat or drink and taken to the OR on date of admission. Patient had open reduction internal fixation of right intertrochanteric hip fracture with intramedullary nailing. She did well in the postoperative setting. Her hemoglobin did continue to trend down from admission due to fracture and operative care. She did not have any evidence of continued bleeding on the postoperative site. Patient was transfused 1 unit of packed red blood cells, vital signs remained stable. Blood pressures remained stable, heart rate remained stable. Patient worked with physical therapy and Occupational Therapy. Discussed with case management and she was recommended to have longterm facility placement. Patient was discharged to longterm facility on postop day #2. She is on oxygen 3 L by nasal cannula at night at her baseline and during the day as needed. Called and discussed with patient on date of discharge, he verbalized understanding and agreed with plan. Physical Exam Const: COMMON NORMALS: alert GENERAL APPEARANCE: cooperative ORIENTATION/CONSCIOUSNESS: Yes awake and Yes oriented to person HENMT: COMMON NORMALS: normocephalic and atraumatic HEAD & SCALP: normocephalic and atraumatic Eye: COMMON NORMALS: Equal, round and reactive pupils present PUPIL: Yes Equal, round and reactive pupils present Neck/C-Spine: COMMON NORMALS: supple GENERAL: Yes normal visual inspection Resp: COMMON NORMALS: normal respiratory effort and clear to auscultation bilaterally EFFORT & INSPECTION: Yes able to speak in complete sentences AUSCULTATION: clear to auscultation bilaterally, no rhonchi and no wheezes Cardio: COMMON NORMALS: regular rate, regular rhythm and No murmurs present (Cardio) RATE: regular rate RHYTHM: regular rhythm GI: COMMON NORMALS: Soft to palpation and non-tender INSPECTION: No abdominal distension AUSCULTATION: Yes normoactive bowel sounds PALPATION: Yes Soft to palpation Extremity: COMMON NORMALS: no clubbing, cyanosis or edema and no calf tenderness NARRATIVE EXTREMITY EXAM: Postoperative changes to the right hip Neuro: COMMON NORMALS: CN's II-XII intact bilaterally, moves all extremities and no focal motor deficits SENSORIUM/ORIENTATION: Yes alert and Yes oriented to person SPEECH: speech normal Psych: COMMON NORMALS: cooperative OTHER: Underlying dementia Skin: NARRATIVE SKIN EXAM: Postoperative changes to the right hip Urinary Catheter Management^: Casillas: Cath Placed During This Visit: yes, but has since been removed by the nurse Reason for Continuing Indwelling Catheter: Perioperative Use in Selected Surgeries Urinary Catheter Date of Insertion: 09/12/19 Urinary Catheter Time of Insertion: 10:54 Date Urinary Catheter Removed: 09/13/19 Time Urinary Catheter Discontinued: 06:24 Discharge Data Data Completed and Pending: Completed Studies During Hospitalization Category Date Time Status XR chest 1V iris ble [id number] Stat Exams 09/12/19 10:32 Completed XR hip RT 2-3V wo /w pel* [id number] Rout ine Exams 09/12/19 20:52 Completed XR hip RT 2-3V wo /w pel* [id number] Stat Exams 09/12/19 11:30 Completed Labs from last 24 hours 09/14/19 09/14/19 09/14/19 10:48 06:32 02:10 WBC RBC Hgb Hct MCV MCH MCHC RDW Plt Count MPV Neut % (Auto) Lymph % (Auto) [place] % (Auto) Eos % (Auto) Baso % (Auto) Neut # (Auto) Lymph # (Auto) [place] # (Auto) Eos # (Auto) Baso # (Auto) Nucleated RBC % (a uto) Nucleated RBCs # Sodium 139 Potassium 3.4 L Chloride 105 Carbon Dioxide 25 Anion Gap 12.4 BUN 11 Creatinine 0.7 Glucose 113 POC Glucose 130 113 Estimat Average Gl ucose Hemoglobin A1c Calculated Osmolal ity 285 Calcium 8.4 L Blood Type Rho(D) Type Antibody Screen Antibody Identific ation Crossmatch 09/14/19 09/13/19 09/13/19 02:10 20:25 14:08 WBC 4.2 RBC 2.59 L Hgb 7.8 L 8.5 L Hct 25.2 L 27.9 L MCV 97.3 MCH 30.1 MCHC 31.0 RDW 14.1 Plt Count 149 MPV 9.8 Neut % (Auto) 68.5 Lymph % (Auto) 19.9 [place] % (Auto) 9.7 Eos % (Auto) 1.2 Baso % (Auto) 0.5 Neut # (Auto) 2.9 Lymph # (Auto) 0.8 [place] # (Auto) 0.4 Eos # (Auto) 0.1 Baso # (Auto) 0.0 Nucleated RBC % (a uto) 0 Nucleated RBCs # 0.0 Sodium Potassium Chloride Carbon Dioxide Anion Gap BUN Creatinine Glucose POC Glucose 113 Estimat Average Gl ucose Hemoglobin A1c Calculated Osmolal ity Calcium Blood Type Rho(D) Type Antibody Screen Antibody Identific ation Crossmatch 09/13/19 09/12/19 05:06 10:40 WBC RBC Hgb Hct MCV MCH MCHC RDW Plt Count MPV Neut % (Auto) Lymph % (Auto) [place] % (Auto) Eos % (Auto) Baso % (Auto) Neut # (Auto) Lymph # (Auto) [place] # (Auto) Eos # (Auto) Baso # (Auto) Nucleated RBC % (a uto) Nucleated RBCs # Sodium Potassium Chloride Carbon Dioxide Anion Gap BUN Creatinine Glucose POC Glucose Estimat Average Gl ucose 100 Hemoglobin A1c 5.1 Calculated Osmolal ity Calcium Blood Type A Negative Rho(D) Type Negative Antibody Screen Positive Antibody Identific ation Anti-D Crossmatch See Detail Vitals: Last Vital Signs Temp 98.6 F 09/14/19 09:54 Pulse 16 L 09/14/19 09:54 Resp 16 09/14/19 09:54 BP 130/62 09/14/19 10:49 Pulse Ox 99 09/14/19 09:54 Discharge Plan Discharge Patient Disposition: Xfer SNF Condition: Stable Prescriptions: New tramadol 50 mg tablet 25 mg PO Q6H PRN (Reason: pain) 5 Days Qty: 20 RF: 0 aspirin 325 mg Tablet,Delayed Release (Dr/Ec) 325 mg PO DAILY 30 Days Qty: 30 RF: 0 ferrous sulfate 325 mg (65 mg iron) Tablet,Delayed Release (Dr/Ec) 325 mg PO TIDWM 30 Days Qty: 90 RF: 0 docusate sodium 100 mg Capsule 100 mg PO BID 14 Days Qty: 28 RF: 0 Continued venlafaxine 75 mg capsule,extended release 24hr 150 mg PO DAILY RF: 0 lorazepam 0.5 mg tablet 0.5 mg PO BID PRN (Reason: Anxiety) RF: 0 Seroquel 25 mg Tablet 25 mg PO BEDTIME RF: 0 fluticasone propion-salmeterol [Wixela Inhub] 250-50 mcg/dose blister with device 1 ea INHALATION BID RF: 0 ipratropium-albuterol 0.5 mg-3 mg(2.5 mg base)/3 mL solution for nebulization 3 ml INHALATION Q6H PRN (Reason: Shortness Of Breath) RF: 0 donepezil 5 mg tablet 10 mg PO DAILY RF: 0 albuterol sulfate 90 mcg/actuation HFA aerosol inhaler 2 puff INHALATION QID PRN (Reason: Shortness Of Breath) RF: 0 Discontinued aspirin 81 mg Tablet,Chewable 81 - 162 mg PO DAILY RF: 0 Discharge Orders: Discharge Order (Routine); Ordered 09/14/19 Ordered By: Sendy Edwards Referrals: [facility] [Outside] (Follow-up with care provider at the longterm facility in 3 to 5 days) Shayy Hayden MD [Primary Care Provider] - 4-7 days Lexi Ruiz MD [Physician] - 2 weeks Discharge Diet: Advance as tolerated and Regular Discharge Activity: As per PT/OT instructions and Oxygen as instructed Activity Restrictions/Additional Instructions: Increase activity as instructed by orthopedic surgery in combination with physical therapy and Occupational Therapy Continue on a regular diet with Ensure supplementation Patient is on oxygen by nasal cannula, 3 L, at nighttime at baseline. Continue with oxygen therapy protocol during the day per custodial protocol. Goal oxygen saturation 90 to 92% due to COPD Discharged with aspirin 325 mg daily, no stronger anticoagulation prescribed at discharge for VTE prophylaxis due to anemia and patient being at risk of fall. Discharge to longterm facility Continue with physical therapy, occupational therapy Discussed with provider or present to the ED for any acute illness or concern. Discharge Attestations Time Spent in Discharge Care*: greater than 30 min Specific Discharge Activities: Specific discharge activities: educating and/or supporting family/caregiver, discussing with pcp/other providers, discussing with counter caser/social workers/dc planners and documenting/other paperwork Quality Metrics Clinical Quality Measures During this hospital stay, did patient experience: None Coding Level of Care Code Acute Axminster Weaver for Chg Fwd Diagnoses Intertrochanteric fracture of right hip S72.141A
[2019-09-14] MEDS: potassium chloride oral liq 20 mEq/15 mL UDC PO ×3 (13:14→15:11)
[2019-09-14] MEDS: donepezil 5 MG Tablet 10 MG PO (13:14)
[2019-09-14] MEDS: venlafaxine ER (24HR) 150 mg Capsule PO (13:15)
--- NOTE | 2019-09-14 21:32 | PM.PN ---
Subjective Subjective: Interval history: The patient was seen prior to discharge. She was up in the chair and doing well. Medications: Reviewed: Yes Vitals/I&O/Wt Last Vital Signs Temp 98.6 F 09/14/19 11:57 Pulse 75 09/14/19 11:57 Resp 16 09/14/19 11:57 BP 133/60 09/14/19 11:57 Pulse Ox 99 09/14/19 10:57 09/14/19 09/14/19 09/14/19 06:59 14:59 22:59 Intake Total 240 / 1684.167 700 / 700 Output Total 550 / 1050 200 / 200 Balance -310 / 634.167 500 / 500 Physical Exam Const: COMMON NORMALS: no acute distress and alert GENERAL APPEARANCE: cooperative and comfortable NUTRITIONAL APPEARANCE: thin ORIENTATION/CONSCIOUSNESS: Yes awake and Yes confused HENMT: COMMON NORMALS: normocephalic and atraumatic HEAD & SCALP: normocephalic and atraumatic Eye: GENERAL EYE: appearance normal, both eyes and all related structures Chest: COMMONS NORMALS: normal inspection of the chest Resp: COMMON NORMALS: normal respiratory effort EFFORT & INSPECTION: Yes symmetric chest movement Extremity: RIGHT LOWER EXTREMITY: Yes hip joint Right hip: Yes inspection (Wound is benign with no drainage), Yes palpation (Minimal tenderness), Yes ROM (Not evaluated) and Yes neurovascular exam (Intact) Neuro: SENSORIUM/ORIENTATION: Yes alert Psych: APPEARANCE: Yes grossly normal ATTITUDE: Yes calm Skin: COMMON NORMALS: no rashes or lesions noted GENERAL SKIN EXAM: no rashes or lesions noted Urinary Catheter Management^: [place]: Cath Placed During This Visit: yes, but has since been removed by the nurse Reason for Continuing Indwelling Catheter: Perioperative Use in Selected Surgeries Urinary Catheter Date of Insertion: 09/12/19 Urinary Catheter Time of Insertion: 10:54 Date Urinary Catheter Removed: 09/13/19 Time Urinary Catheter Discontinued: 06:24 Data : 09/14/19 02:10 09/14/19 02:10 A&P Assessment and plan (1) Intertrochanteric fracture of right hip: Patient underwent open reduction internal fixation. She has been working with physical therapy and is ready for discharge to residential. Status: Acute Attestations Medical Necessity Statement*: Patient is ready for discharge to residential. Coding Level of Care Code Acute Quality Lab Technician for Alena Fwd Exam Comprehensive Diagnoses Intertrochanteric fracture of right hip S72.329E
--- NOTE | 2019-09-17 10:55 | PC.RESP ---
Patient given information on Pulmonary Rehab.
== END 2019-09-14 16:29 | disposition skilled nursing facility (03) | DRG 481 ==
LOC: ER 12:12 → MEDSURG 13:34
PROVIDERS: Family Medicine; Specialist; Admitting Provider Family Medicine; PCP Family Medicine; Visit Provider Family Medicine
PROC: 0QS606Z Reposition Right Upper Femur with Intramedullary Internal Fixation Device, Open Approach (ICD-10-PCS; CPT 27245; principal; 2019-09-12 16:30)
DX: S72.141A Displaced intertrochanteric fracture of right femur, initial encounter for closed fracture (principal); D62 Acute posthemorrhagic anemia; W01.0XXA Fall on same level from slipping, tripping and stumbling without subsequent striking against object, initial encounter; Y92.010 Kitchen of single-family (private) house as the place of occurrence of the external cause; J44.9 Chronic obstructive pulmonary disease, unspecified; F03.90 Unspecified dementia, unspecified severity, without behavioral disturbance, psychotic disturbance, mood disturbance, and anxiety; F41.9 Anxiety disorder, unspecified; Z87.891 Personal history of nicotine dependence; Z99.81 Dependence on supplemental oxygen; Z79.51 Long term (current) use of inhaled steroids
CPT/HCPCS: 12345; 36415; 36416; 36430; 51702; 71045; 73502; 76000; 80048; 80053; 81003; 82550; 82962; 83036; 85014; 85018; 85025; 85610; 85730; 86850; 86870; 86900; 86920; 93005; 94640; 94664; 96365; 96375; 97110; 97116; 97161; 97166; 97530; 97535; 99283; C1713; J0131; J0360; J0690; J2001; J2270; J2405; J2704; J2765; J3010; J3490; J7030; J7799; P9040

== ENCOUNTER 2019-10-04 17:59 | Emergency (ER) | payer MEDICARE, SELFPAY ==
[2019-10-04 18:01] VITALS: BP 144/52; PULSE 85; RESP 16; TEMP 37; O2SAT 93; BMI 15.7
[2019-10-04 18:20] VITALS: BP 144/52; PULSE 82; RESP 18; O2SAT 97
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
[2019-10-04 18:38] LABS: Basophils % 0.3 %; Eosinophils # 0.1 10^3/uL (0.0-0.8); Hematocrit 33.7 % (37.0-47.0); Hemoglobin 10.3 g/dL (11.5-15.3); Lymphocytes # 1.1 10^3/uL (0.8-4.8); Lymphocytes % 15.8 %; Mean Corpuscular HGB Conc 30.6 g/dL (30.0-36.0); Mean Corpuscular Hemoglobin 29.2 pg (28.0-34.0); Mean Corpuscular Volume 95.5 fL (81-99); Mean Platelet Volume 9.8 fL (7.4-10.4); Monocytes # 0.5 10^3/uL (0.2-0.9); Monocytes % 6.6 %; Neutrophils # 5.19 10^3/uL (1.8-7.7); Neutrophils % 76.2 %; Nucleated Red Blood Cells % 0 %; Platelet Count 299 10^3/cmm (130-400); Red Blood Count 3.53 10^6/uL (4.1-5.3); Red Cell Distribution Width 14.6 % (12.1-15.1); White Blood Count 6.8 10^3/uL (4.0-10.0)
[2019-10-04 19:10] LABS: Amphetamines Screen Urine Negative (Negative); Barbiturates Screen Urine Negative (Negative); Benzodiazepines Screen Urine Positive (Negative); Cocaine Screen Urine Negative (Negative); Opiate Screen Urine Positive (Negative); PCP Screen Urine Positive (Negative); THC Screen Urine Negative (Negative)
[2019-10-04 19:12] LABS: Alanine Aminotransferase 8 U/L (0-33); Alkaline Phosphatase 155 IU/L (35-105); Anion Gap 15.3 (5-19); Aspartate Amino Transferase 19 U/L (0-32); Blood Urea Nitrogen 18 mg/dL (8-23); Calcium 9.8 mg/dL (8.5-10.5); Carbon Dioxide 27 mmol/L (22-29); Chloride 100 mmol/L (98-107); Globulin 2.7 g/dL (1.3-4.6); Glucose 95 mg/dL (65-115); Osmolality Calculated 282 mOsm/kg (285-295); Potassium 4.3 mmol/L (3.5-5.1); Sodium 138 mmol/L (136-145); Total Bilirubin 0.2 mg/dL (0.15-1.2); Total Protein 6.7 g/dL (6.6-8.7)
[2019-10-04 19:14] LABS: Acetaminophen < 5.0 ug/mL (10-30); Alcohol Level < 10 mg/dL (0-10); Salicylate < 0.3 mg/dL (3-10)
[2019-10-04 19:14] LABS: Glucose Urine UA Norm (Normal); Ketones Urine Negative (Negative); Protein Urine Neg (Negative); Specific Gravity, Urine 1.015 (1.005-1.030); Urine Appearance Clear (CLEAR); Urine Color Yellow (Yellow); pH Urine 7 (5-7)
[2019-10-04 19:15] LABS: Add Urine Microscopic? YES; Bilirubin Urine Neg (NEGATIVE); Blood Urine 2+ (Negative); Leukocyte Esterase Urine 1+ (Negative); Nitrate Urine Negative (Negative); Urobilinogen Urine Norm (Negative)
[2019-10-04 19:23] LABS: Add Urine Culture? No; Bacteria Urine 2+; RBC Urine 0-4 /hpf (0-2); Squamous Epithelial Cell Urine 15-25 (0-5); WBC Urine 0-4 /hpf (0-5)
--- NOTE | 2019-10-04 19:41 | ECG_ITS ---
[facility] Test Date: 2019-10-04 Pat Name: Deja Fletcher Department: Room: Gender: Female Parole Agent: : 1945 Requested By: Booker Waldrop Order Number: [id number] Kristi MD: Tunde Torres M.D. Measurements Intervals [place] Rate: 72 P: 82 AK: 150 QRS: 82 QRSD: 88 T: 65 QT: 383 QTc: 422 Interpretive Statements SINUS RHYTHM WITH SINUS ARRHYTHMIA Compared to ECG 09/12/2019 11:11:50 T-wave abnormality no longer present Electronically Signed On 10-05-2019 19:04:11 CDT by Tunde Torres M.D. [email or web address] (deal united)[email or web address]/[id number]
[2019-10-04] MEDS: LORazepam 1 mg Tablet 0.5 MG PO (19:51)
--- NOTE | 2019-10-04 20:56 | XRR_ITS ---
PROCEDURE INFORMATION: Exam: XR Chest, 1 View Exam date and time: 10/04/2019 9:34 PM Age: 74 years old Clinical indication: Cough and dyspnea; Additional info: Dyspnea/cough TECHNIQUE: Imaging protocol: XR of the chest Views: 1 view. COMPARISON: CR XR chest 1V portable [id number] 09/12/2019 11:39 AM FINDINGS: Lungs: Hyperinflation. No consolidation. Pleural space: Unremarkable. No pleural effusion. No pneumothorax. Heart/Mediastinum: Stable heart size. Vasculature: Calcified thoracic aorta. Bones/joints: Osteopenia. XR/XR chest 1V portable [id number] IMPRESSION: Hyperinflation.
--- NOTE | 2019-10-04 21:54 | PC.NURSE ---
pt has a sitter sitting with her because she keeps trying to get out of bed. pt cont to be pleasant with staff a agreeable when instructed to get back in bed. we were concerned that she would fall or wonder off the unit if she didn't have a sitter.
--- NOTE | 2019-10-04 22:14 | PC.NURSE ---
EKG done at 2210 and shown to ER doctor
[2019-10-05] VITALS: BP 145/38; PULSE 79; RESP 18; O2SAT 97
--- NOTE | 2019-10-05 00:02 | PC.NURSE ---
called [facility] and they have received faxed info and are reviewing it at this time.
[2019-10-05] MEDS: haloperidol inj 5 mg/mL INJ 1 mL 2.5 MG IM (01:49)
[2019-10-05 02:46] VITALS: PULSE 89; RESP 16; O2SAT 94
== END 2019-10-05 02:48 | disposition short-term general hospital (02) ==
PROVIDERS: Family Medicine; Emergency Provider Emergency Medicine; PCP Family Medicine
DX: F23 Brief psychotic disorder (principal); Z79.82 Long term (current) use of aspirin; J44.9 Chronic obstructive pulmonary disease, unspecified; F03.90 Unspecified dementia, unspecified severity, without behavioral disturbance, psychotic disturbance, mood disturbance, and anxiety; Z87.891 Personal history of nicotine dependence; Z79.899 Other long term (current) drug therapy
CPT/HCPCS: 12345; 71045; 80053; 80306; 80307; 81001; 81003; 85025; 93005; 96372; 99284; 99285; J1630

== ENCOUNTER 2019-11-10 12:26 | Emergency (ER) | payer MEDICARE, SELFPAY ==
[2019-11-10 12:57] VITALS: BP 117/57; PULSE 95; RESP 20; TEMP 36.7; O2SAT 95; BMI 13.7
--- NOTE | 2019-11-10 13:25 | CTR_ITS ---
PROCEDURE INFORMATION: Exam: CT Head Without Contrast Exam date and time: 11/10/2019 1:30 PM Age: 74 years old Clinical indication: Condition or disease; Other: Parkinsons; Additional info: AMS TECHNIQUE: Imaging protocol: Computed tomography of the head without contrast. Radiation optimization: All CT scans at this facility use at least one of these dose optimization techniques: automated exposure control; mA and/or kV adjustment per patient size (includes targeted exams where dose is matched to clinical indication); or iterative reconstruction. COMPARISON: MRI Head w/wo* [id number] 07/03/2018 8:57 AM RADIATION DOSE METRICS: Total DLP (mGy-cm): 634.67 FINDINGS: Brain: Moderate white matter disease and volume loss are identified. There is no acute infarct or edema. No hemorrhage. Ventricles: Normal. No ventriculomegaly. Bones/joints: Unremarkable. No acute fracture. Sinuses: Visualized sinuses are unremarkable. No fluid levels. Mastoid air cells: Visualized mastoid air cells are well aerated. Soft tissues: Unremarkable. CT/CT head wo con* [id number] IMPRESSION: There are no acute concerning abnormalities. Radiation Dose CTDIVOL = (mGy): DLP = 634.67 (mGy-cm)
--- NOTE | 2019-11-10 13:25 | XRR_ITS ---
PROCEDURE INFORMATION: Exam: XR Chest, 1 View Exam date and time: 11/10/2019 1:30 PM Age: 74 years old Clinical indication: Other: AMS TECHNIQUE: Imaging protocol: XR of the chest Views: 1 view. COMPARISON: CR XR chest 1V portable [id number] 10/04/2019 9:23 PM FINDINGS: Lungs: Unremarkable. No consolidation. Pleural space: Unremarkable. No pleural effusion. No pneumothorax. Heart/Mediastinum: Unremarkable. No cardiomegaly. Bones/joints: Unremarkable. XR/XR chest 1V portable [id number] IMPRESSION: No acute findings.
[2019-11-10 13:51] LABS: Basophils % 0.3 %; Eosinophils % 0.6 %; Hematocrit 32.3 % (37.0-47.0); Hemoglobin 9.8 g/dL (11.5-15.3); Lymphocytes # 0.7 10^3/uL (0.8-4.8); Lymphocytes % 10.2 %; Mean Corpuscular HGB Conc 30.3 g/dL (30.0-36.0); Mean Corpuscular Hemoglobin 28.5 pg (28.0-34.0); Mean Corpuscular Volume 93.9 fL (81-99); Mean Platelet Volume 9.2 fL (7.4-10.4); Monocytes # 0.4 10^3/uL (0.2-0.9); Monocytes % 5.5 %; Neutrophils # 5.48 10^3/uL (1.8-7.7); Neutrophils % 83.2 %; Nucleated Red Blood Cells % 0 %; Platelet Count 336 10^3/cmm (130-400); Red Blood Count 3.44 10^6/uL (4.1-5.3); Red Cell Distribution Width 14.3 % (12.1-15.1); White Blood Count 6.6 10^3/uL (4.0-10.0)
[2019-11-10 14:02] LABS: Add Urine Microscopic? NO
[2019-11-10 14:09] LABS: Procalcitonin 0.19 ng/mL (0-0.5)
[2019-11-10 14:11] LABS: Lactate (Lactic Acid level) 2.5 mmol/L (0.5-2.2)
[2019-11-10 14:13] LABS: Amphetamines Screen Urine Negative (Negative); Barbiturates Screen Urine Negative (Negative); Benzodiazepines Screen Urine Positive (Negative); Cocaine Screen Urine Negative (Negative); Opiate Screen Urine Negative (Negative); PCP Screen Urine Positive (Negative); THC Screen Urine Negative (Negative)
[2019-11-10 14:21] LABS: Alanine Aminotransferase 7 U/L (0-33); Albumin Level 3.7 g/dL (3.5-5.2); Alkaline Phosphatase 104 IU/L (35-105); Anion Gap 13.6 (5-19); Aspartate Amino Transferase 13 U/L (0-32); Blood Urea Nitrogen 16 mg/dL (8-23); C Reactive Protein 26.9 mg/L (0.0-4.9); Calcium 8.7 mg/dL (8.5-10.5); Carbon Dioxide 27 mmol/L (22-29); Chloride 105 mmol/L (98-107); Globulin 3.2 g/dL (1.3-4.6); Glucose 111 mg/dL (65-115); Osmolality Calculated 291 mOsm/kg (285-295); Potassium 3.6 mmol/L (3.5-5.1); Sodium 142 mmol/L (136-145); Total Bilirubin 0.2 mg/dL (0.15-1.2); Total Protein 6.9 g/dL (6.6-8.7)
[2019-11-10 14:22] LABS: Bilirubin Urine Neg (NEGATIVE); Blood Urine Neg (Negative); Glucose Urine UA Norm (Normal); Ketones Urine Negative (Negative); Leukocyte Esterase Urine Negative (Negative); Nitrate Urine Negative (Negative); Protein Urine Neg (Negative); Specific Gravity, Urine 1.025 (1.005-1.030); Urine Appearance Clear (CLEAR); Urine Color Yellow (Yellow); Urobilinogen Urine Norm (Negative); pH Urine 5 (5-7)
[2019-11-10] MEDS: LORazepam 2 mg/mL INJ 1 mL 1 MG IVP (15:20)
--- NOTE | 2019-11-10 17:22 | W.ED.AMS ---
HPI - Altered Mental Status General: Chief Complaint: Altered Mental Status Stated Complaint: mhe Time Seen by Provider: 11/10/19 13:08 Source: family Mode of arrival: ambulatory Limitations: other (Dementia) History of Present Illness: HPI narrative: This unfortunate 74-year-old female with a history of Lewy body dementia presents to the emergency department with her with complaints of altered mental status. said for the last 2 days the patient has not been eating or drinking much, has been yelling more and is more confused than usual. She is also having increased tremors. The is not sure if this is just a progression of heart disease or if there is an illness going on so he brought her here to be evaluated MD complaint: altered mental status and confusion Onset (ago): day(s) (2) Timing confirmed by: spouse Severity: moderate Consistency of symptoms: Waxing and Waning Review of Systems General: Reports: ROS unobtainable due to mental status (dementia) [facility] ED PFSH: Medical History Anxiety COPD (chronic obstructive pulmonary disease) Dementia Surgical History History of hysterectomy Family History Mother CAD (coronary artery disease) Social History Smoking and tobacco status: former smoker Physical Exam Const: COMMON NORMALS: no acute distress, average body habitus, no limitations, healthy appearing, alert and well nourished ORIENTATION/CONSCIOUSNESS: Yes oriented to person and Yes oriented to place HENMT: COMMON NORMALS: normocephalic, atraumatic and moist oral mucous membranes HEAD & SCALP: normocephalic and atraumatic Neck/C-Spine: COMMON NORMALS: no meningeal signs and no JVD Resp: COMMON NORMALS: normal respiratory effort, No retractions, No use of accessory muscles, clear to auscultation bilaterally and percussion normal AUSCULTATION: clear to auscultation bilaterally PERCUSSION: percussion normal Cardio: COMMON NORMALS: no JVD, regular rate, regular rhythm, S1 normal heart sound present, S2 normal heart sound present, No gallops present (Cardio), No clicks present (Cardio), No murmurs present (Cardio), No rub (Cardio) and Peripheral pulses 2+ throughout RATE: regular rate RHYTHM: regular rhythm HEART SOUNDS: S1 normal heart sound present and S2 normal heart sound present PERIPHERAL PULSES: Peripheral pulses 2+ throughout GI: COMMON NORMALS: Normal to inspection, nondistended, normoactive bowel sounds present, Soft to palpation, non-tender, No hepatosplenomegaly present, no masses and no bruits PALPATION: Yes Soft to palpation and Yes No hepatosplenomegaly present Extremity: COMMON NORMALS: normal to inspection, full ROM, capillary refill normal, no calf tenderness and no pedal edema Neuro: SENSORIUM/ORIENTATION: Yes alert, Yes oriented to person and Yes oriented to place MENINGEAL SIGNS: Yes no meningeal signs OTHER: Complete exam could not be done as she is unable to follow commands Skin: COMMON NORMALS: no rashes or lesions noted, no wounds, turgor normal, no jaundice, no petechiae and no mottling GENERAL SKIN EXAM: no rashes or lesions noted and turgor normal Course Reevaluation(s): Reevaluation #1: Discussed her lab and imaging findings with her . Nothing acute. This is likely progression of her disease which he is aware of. We will discharge her home with no new orders, he is advised to follow-up with her primary care to see if she can be placed in a chcf. He voiced understanding and is in agreement with the plan. Time: 17:22 Vital Signs: Vital signs: Vital Signs Temperature 98.1 F 11/10/19 12:57 Pulse Rate 92 11/10/19 17:43 Respiratory Rate 20 H 11/10/19 17:43 Blood Pressure 112/61 11/10/19 17:43 Pulse Oximetry 95 11/10/19 17:43 MDM - Altered Mental Status MDM Narrative: Medical decision making narrative: 74-year-old female patient was brought in by her with increased confusion. Evaluation in the emergency department did not reveal any medical cause for her symptoms. I believe this is just a worsening of her dementia. She has pretty advanced Lewy body dementia. Advised to to see if he could get her placed in a chcf for his health or to discuss with her primary care provider to see if they can arrange some resources for him and possible respite care. She is discharged home with no new orders Medical Records: Attestation: I reviewed the patient's medical records. Lab Data: Labs: Lab Results 11/10/19 11/10/19 11/10/19 Range/Units 13:31 13:31 13:31 WBC 6.6 (4.0-10.0) 10^3/ uL RBC 3.44 L (4.1-5.3) 10^6/u L Hgb 9.8 L (11.5-15.3) g/dL Hct 32.3 L (37.0-47.0) % MCV 93.9 (81-99) fL MCH 28.5 (28.0-34.0) pg MCHC 30.3 (30.0-36.0) g/dL RDW 14.3 (12.1-15.1) % Plt Count 336 (130-400) 10^3/c mm MPV 9.2 (7.4-10.4) fL Neut % (Auto) 83.2 % Lymph % (Auto) 10.2 % [place] % (Auto) 5.5 % Eos % (Auto) 0.6 % Baso % (Auto) 0.3 % Neut # (Auto) 5.48 (1.8-7.7) 10^3/u L Lymph # (Auto) 0.7 L (0.8-4.8) 10^3/u L [place] # (Auto) 0.4 (0.2-0.9) 10^3/u L Eos # (Auto) 0.0 (0.0-0.8) 10^3/u L Baso # (Auto) 0.0 (0.0-0.1) 10^3/u L Nucleated RBC % (a uto) 0 % Nucleated RBCs # 0.0 /100WBC Sodium 142 (136-145) mmol/L Potassium 3.6 (3.5-5.1) mmol/L Chloride 105 (98-107) mmol/L Carbon Dioxide 27 (22-29) mmol/L Anion Gap 13.6 (5-19) BUN 16 (8-23) mg/dL Creatinine 0.6 (0.5-0.9) mg/dL GFR Calculation Not Reportable Glucose 111 (65-115) mg/dL Calculated Osmolal ity 291 (285-295) mOsm/k g Lactate 2.5 H (0.5-2.2) mmol/L Calcium 8.7 (8.5-10.5) mg/dL Total Bilirubin 0.2 (0.15-1.2) mg/dL AST 13 (0-32) U/L ALT 7 (0-33) U/L Alkaline Phosphata se 104 (35-105) IU/L C-Reactive Protein 26.9 H (0.0-4.9) mg/L Total Protein 6.9 (6.6-8.7) g/dL Albumin 3.7 (3.5-5.2) g/dL Globulin 3.2 (1.3-4.6) g/dL Procalcitonin 0.19 (0-0.5) ng/mL Urine Color (Yellow) Urine Appearance (CLEAR) Urine pH (5-7) Ur Specific Gravit y (1.005-1.030) Urine Protein (Negative) Urine Glucose (UA) (Normal) Urine Ketones (Negative) Urine Blood (Negative) Urine Nitrate (Negative) Urine Bilirubin (NEGATIVE) Urine Urobilinogen (Negative) mg/dL Ur Leukocyte Vicki ase (Negative) Urine Opiates Scre en (Negative) ng/mL Ur Barbiturates Sc reen (Negative) ng/mL Ur Phencyclidine S crn (Negative) ng/mL Ur Amphetamines Sc reen (Negative) ng/mL U Benzodiazepines Scrn (Negative) ng/mL Urine Cocaine Scre en (Negative) ng/mL U Marijuana (THC) Screen (Negative) ng/mL 11/10/19 11/10/19 Range/Units 13:41 13:41 WBC (4.0-10.0) 10^3/ uL RBC (4.1-5.3) 10^6/u L Hgb (11.5-15.3) g/dL Hct (37.0-47.0) % MCV (81-99) fL MCH (28.0-34.0) pg MCHC (30.0-36.0) g/dL RDW (12.1-15.1) % Plt Count (130-400) 10^3/c mm MPV (7.4-10.4) fL Neut % (Auto) % Lymph % (Auto) % [place] % (Auto) % Eos % (Auto) % Baso % (Auto) % Neut # (Auto) (1.8-7.7) 10^3/u L Lymph # (Auto) (0.8-4.8) 10^3/u L [place] # (Auto) (0.2-0.9) 10^3/u L Eos # (Auto) (0.0-0.8) 10^3/u L Baso # (Auto) (0.0-0.1) 10^3/u L Nucleated RBC % (a uto) % Nucleated RBCs # /100WBC Sodium (136-145) mmol/L Potassium (3.5-5.1) mmol/L Chloride (98-107) mmol/L Carbon Dioxide (22-29) mmol/L Anion Gap (5-19) BUN (8-23) mg/dL Creatinine (0.5-0.9) mg/dL GFR Calculation Glucose (65-115) mg/dL Calculated Osmolal ity (285-295) mOsm/k g Lactate (0.5-2.2) mmol/L Calcium (8.5-10.5) mg/dL Total Bilirubin (0.15-1.2) mg/dL AST (0-32) U/L ALT (0-33) U/L Alkaline Phosphata se (35-105) IU/L C-Reactive Protein (0.0-4.9) mg/L Total Protein (6.6-8.7) g/dL Albumin (3.5-5.2) g/dL Globulin (1.3-4.6) g/dL Procalcitonin (0-0.5) ng/mL Urine Color Yellow (Yellow) Urine Appearance Clear (CLEAR) Urine pH 5 (5-7) Ur Specific Gravit y 1.025 (1.005-1.030) Urine Protein Neg (Negative) Urine Glucose (UA) Norm (Normal) Urine Ketones Negative (Negative) Urine Blood Neg (Negative) Urine Nitrate Negative (Negative) Urine Bilirubin Neg (NEGATIVE) Urine Urobilinogen Norm (Negative) mg/dL Ur Leukocyte Vicki ase Negative (Negative) Urine Opiates Scre en Negative (Negative) ng/mL Ur Barbiturates Sc reen Negative (Negative) ng/mL Ur Phencyclidine S crn Positive H (Negative) ng/mL Ur Amphetamines Sc reen Negative (Negative) ng/mL U Benzodiazepines Scrn Positive H (Negative) ng/mL Urine Cocaine Scre en Negative (Negative) ng/mL U Marijuana (THC) Screen Negative (Negative) ng/mL Imaging Data^: CT Head: Radiologist's impression: [address] [id number] [address] Scan Report Signed Patient: Deja Fletcher #: [id number] : 6Acct#:[id number] Age/Sex: 74 / FADM Date: 11/10/19 Loc: ERRoom/Bed: Attending Dr: Ordering Provider/Ordering MD: Arielle Acosta MD, [facility] Date of Service: 11/10/19 Procedure(s): CT head wo con* [id number] Accession Number(s): [id number] Report Number: [id number] PROCEDURE INFORMATION: Exam: CT Head Without Contrast Exam date and time: 11/10/2019 1:30 PM Age: 74 years old Clinical indication: Condition or disease; Other: Parkinsons; Additional info: AMS TECHNIQUE: Imaging protocol: Computed tomography of the head without contrast. Radiation optimization: All CT scans at this facility use at least one of these dose optimization techniques: automated exposure control; mA and/or kV adjustment per patient size (includes targeted exams where dose is matched to clinical indication); or iterative reconstruction. COMPARISON: MRI Head w/wo* [id number] 07/03/2018 8:57 AM RADIATION DOSE METRICS: Total DLP (mGy-cm): 634.67 FINDINGS: Brain: Moderate white matter disease and volume loss are identified. There is no acute infarct or edema. No hemorrhage. Ventricles: Normal. No ventriculomegaly. Bones/joints: Unremarkable. No acute fracture. Sinuses: Visualized sinuses are unremarkable. No fluid levels. Mastoid air cells: Visualized mastoid air cells are well aerated. Soft tissues: Unremarkable. CT/CT head wo con* [id number] IMPRESSION: There are no acute concerning abnormalities. Radiation Dose CTDIVOL = (mGy): DLP = 634.67 (mGy-cm) Dictated By:Rigo Robles MD Signed By:Rigo Robles MDSigned Date/Time:11/10/191450 DD/ 49 CXR: Radiologist's impression: [address] [address] XRay Report Signed Patient: Deja Fletcher #: [id number] : 6Acct#:[id number] Age/Sex: 74 / FADM Date: 11/10/19 Loc: ERRoom/Bed: Attending Dr: Ordering Provider/Ordering MD: Arielle Acosta MD, [facility] Date of Service: 11/10/19 Procedure(s): XR chest 1V portable [id number] Accession Number(s): [id number] Report Number: [id number] PROCEDURE INFORMATION: Exam: XR Chest, 1 View Exam date and time: 11/10/2019 1:30 PM Age: 74 years old Clinical indication: Other: AMS TECHNIQUE: Imaging protocol: XR of the chest Views: 1 view. COMPARISON: CR XR chest 1V portable [id number] 10/04/2019 9:23 PM FINDINGS: Lungs: Unremarkable. No consolidation. Pleural space: Unremarkable. No pleural effusion. No pneumothorax. Heart/Mediastinum: Unremarkable. No cardiomegaly. Bones/joints: Unremarkable. XR/XR chest 1V portable [id number] IMPRESSION: No acute findings. Dictated By:Rigo Robles MD Signed By:Rigo Robles MDSigned Date/Time:11/10/191456 DD/ 55 Discharge Plan Discharge Patient Disposition: Home Clinical Impression: Dementia with Lewy bodies Qualifiers: Dementia behavioral disturbance: without behavioral disturbance Qualified Code(s): G31.83 - Dementia with Lewy bodies Condition: Stable Prescriptions: Continued hydrocodone-acetaminophen [[place]] 5-325 mg tablet 1 tab PO Q4H PRN (Reason: Pain) RF: 0 venlafaxine 75 mg capsule,extended release 24hr 150 mg PO DAILY RF: 0 lorazepam 0.5 mg tablet 1 mg PO Q4H PRN (Reason: Anxiety) RF: 0 quetiapine [Seroquel] 25 mg Tablet See Rx Instructions .ROUTE .COMPLEX RF: 0 acetaminophen [Tylenol] 325 mg Tablet 650 mg PO Q6H PRN (Reason: Pain) RF: 0 Fleet Enema 19-7 gram/118 mL Enema 118 ml WI DAILY PRN (Reason: Constipation) RF: 0 bisacodyl [Dulcolax (bisacodyl)] 5 mg Tablet,Delayed Release (Dr/Ec) 10 mg PO DAILY PRN (Reason: Constipation) RF: 0 Combivent Respimat 20-100 mcg/actuation Mist 1 puff INHALATION Q6H PRN (Reason: Shortness Of Breath) RF: 0 fluticasone propion-salmeterol [Wixela Inhub] 250-50 mcg/dose blister with device 1 ea INHALATION BID RF: 0 albuterol sulfate 90 mcg/actuation HFA aerosol inhaler 2 puff INHALATION QID PRN (Reason: Shortness Of Breath) RF: 0 aspirin 325 mg Tablet 325 mg PO DAILY RF: 0 donepezil 10 mg Tablet 10 mg PO DAILY RF: 0 citalopram 20 mg Tablet 20 mg PO DAILY RF: 0 mirtazapine 45 mg Tablet 45 mg PO DAILY RF: 0 risperidone 1 mg Tablet 1 mg PO BID RF: 0 Discharge Orders: Discharge Order (Routine); Ordered 11/10/19 Ordered By: Arielle Acosta Referrals: Shayy Hayden MD [Primary Care Provider] - 1-3 days (To discuss dementia resources and possible placement in chcf) Patient Instructions: Dementia (ED) Activity Restrictions/Additional Instructions: Return for any new or worsening symptoms. Follow-up with her primary care provider as soon as you can to discuss possible resources and to see if she can be placed in a chcf. Continue her home medications. Discharge Date/Time: 11/10/19 17:45 Coding Level of Care Code ED Ocular Care Aide for Chg Fwd Exam Comprehensive
[2019-11-10] MEDS: sodium chloride 0.9% 1,000 ML 999 ML IV (17:25)
[2019-11-10 17:43] VITALS: BP 112/61; PULSE 92; RESP 20; O2SAT 95
== END 2019-11-10 17:45 | disposition home or self-care (01) ==
PROVIDERS: Emergency Provider Family Medicine; PCP Family Medicine
DX: G31.83 Neurocognitive disorder with Lewy bodies (principal); Z79.82 Long term (current) use of aspirin; J44.9 Chronic obstructive pulmonary disease, unspecified; Z87.891 Personal history of nicotine dependence
CPT/HCPCS: 12345; 70450; 71045; 80053; 80306; 81003; 83605; 84145; 85025; 86140; 96361; 96374; 96375; 99283; 99284; J2060; J7030

== ENCOUNTER 2019-11-26 14:52 | Emergency (ER) | payer MEDICARE, SELFPAY ==
[2019-11-26] VITALS (9 sets, daily range): BP systolic 110–140; BP diastolic 46–58; PULSE 60–71; RESP 20–29; TEMP 36.8–37.1; O2SAT 92–100; BMI 16.5
--- NOTE | 2019-11-26 14:58 | XRR_ITS ---
PROCEDURE INFORMATION: Exam: XR Chest, 1 View Exam date and time: 11/26/2019 5:14 PM Age: 74 years old Clinical indication: Condition or disease; Other: Covid; Additional info: Cough/shortness of breath TECHNIQUE: Imaging protocol: XR of the chest Views: 1 view. COMPARISON: CR (CHEST, ) 11/10/2019 1:42 PM FINDINGS: Lungs: Mild interstitial thickening. More focal involvement of the right lower lobe. Hyperinflation. Pleural space: Unremarkable. No pleural effusion. No pneumothorax. Heart/Mediastinum: Stable heart size. Vasculature: Calcified thoracic aorta. Bones/joints: Unremarkable. Soft tissues: Skin fold overlies the right upper chest. XR/XR chest 1V portable [id number] IMPRESSION: Hyperinflation with mild areas interstitial thickening with more focal interstitial changes right lower lobe.
--- NOTE | 2019-11-26 14:59 | ECG_ITS ---
[facility] Test Date: 2019-11-26 Pat Name: Deja Fletcher Department: Room: Gender: Female Personnel Psychologist: : 1945 Requested By: Lisa Busch Order Number: [id number] Kristi MD: Norah Marin M.D. Measurements Intervals [place] Rate: 70 P: 79 IA: 121 QRS: 78 QRSD: 100 T: 35 QT: 413 QTc: 446 Interpretive Statements SINUS RHYTHM MODERATE T-WAVE ABNORMALITY, CONSIDER ANTEROLATERAL ISCHEMIA [-0.1+ mV T WAVE IN V3-V6] Compared to ECG 10/04/2019 22:20:17 T-wave abnormality now present Possible ischemia now present Sinus arrhythmia no longer present Electronically Signed On 11-26-2019 23:43:18 CDT by Norah Marin M.D. [id number]
--- NOTE | 2019-11-26 15:03 | ED_ITS ---
HPI - Weakness General: Chief complaint: Weakness Stated complaint: WEAKNESS / NOT FEELING WELL Time Seen by Provider: 11/26/19 14:53 Source: patient and EMS Mode of arrival: EMS Limitations: altered mental status History of Present Illness: HPI Narrative: Deja is a 74-year-old female brought in by EMS after they were called by family for the report of altered mental status. Family told EMS that the patient has not wanted to eat or drink anything and has not gotten out of bed in the past 2 days. She not reported any pain but does have a rhonchorous cough. Patient does not report any headache, chest pain, shortness of breath, abdominal pain, back pain, extremity pain, or any constitutional symptoms. When asked why she did not eat or drink anything for the past 2 days or get out of bed her response was that she just did not feel hungry. Patient has GCS of 14 at this time but is in no acute distress. Patient's room air pulse ox is 88% on 2 L nasal cannula her pulse ox raises to 94%. Vital signs are otherwise stable at this time. Associated symptoms: Denies chest pain, chills, confusion, melena, diaphoresis, dysuria, easy bruising, fever(s), headache(s), nausea, syncope or vomiting Review of Systems Const: Denies: fever(s), chills, body aches, fatigue, malaise or diaphoresis Eyes: Denies: change in vision, blurry vision, photophobia, eye discomfort, eye discharge or eye redness ENMT: Denies: throat pain, odynophagia, hoarseness, swelling of lips/tongue, ear or mastoid pain, ear discharge, change in hearing or nasal discharge Card: Denies: chest pain, palpitations, irregular heart rhythm, edema, lightheadedness, syncope, pre-syncope, dyspnea on exertion or orthopnea Resp: Denies: dyspnea, productive cough, non-productive cough, wheezing, hemoptysis or chest congestion GI: Denies: abdominal pain, nausea, vomiting, hematemesis, coffee ground emesis, heartburn, diarrhea, constipation, GI cramping, hematochezia or melena : Denies: flank pain, dysuria, urinary frequency, urinary urgency or hematuria Musc: Denies: neck pain, back pain, extremity pain, extremity swelling, joint pain, joint swelling, joint redness, joint warmth or joint stiffness Skin/Breast: Denies: rash, pruritus, erythema or skin tenderness Neuro: Denies: headache(s), numbness in extremities, weakness in extremities, sensory changes, lack of coordination, difficulty walking, dizziness, vertigo, confusion, Slurred speech present or seizure-like activity Thomas/Lymph: Denies: easy bruising, easy bleeding, petechiae, purpura or enlarged lymph nodes All/Imm: Denies: urticaria, throat swelling, tongue swelling, facial swelling or acute wheezing PFSH ED PFSH: Medical History Anxiety COPD (chronic obstructive pulmonary disease) Dementia Surgical History History of hysterectomy Family History Mother CAD (coronary artery disease) Social History Smoking and tobacco status: former smoker Physical Exam Const: COMMON NORMALS: no acute distress, no limitations, healthy appearing and well nourished GENERAL APPEARANCE: cooperative, well kempt, well developed and lethargic ORIENTATION/CONSCIOUSNESS: Yes lethargic HENMT: COMMON NORMALS: normocephalic, atraumatic, external ears normal, EAC's normal and Normal external nose present HEAD & SCALP: normal to inspection, normocephalic and atraumatic FACE & SINUS: normal facial exam and face symmetric NOSE: Normal external nose present and Normal nares present EXTERNAL EAR: Yes external ears normal EXTERNAL AUDITORY CANAL: EAC's normal MOUTH: Normal oral and palatal mucosa present, lip normal and tongue normal Eye: COMMON NORMALS: Equal, round and reactive pupils present and conjunctivae normal GENERAL EYE: appearance normal, both eyes and all related structures ALIGNMENT: Yes alignment normal PERIORBITAL: periorbital findings normal EYELID: eyelids normal CONJUNCTIVA: Yes conjunctivae normal SCLERA: scle papito normal PUPIL: Yes Equal, round and reactive pupils present Neck/C-Spine: COMMON NORMALS: full ROM, no lymphadenopathy, supple, no meningeal signs and no JVD GENERAL: Yes normal visual inspection and Yes trachea midline Chest: COMMONS NORMALS: normal inspection of the chest and normal palpation of entire chest wall Resp: COMMON NORMALS: normal respiratory effort, No retractions, No use of accessory muscles and clear to auscultation bilaterally EFFORT & INSPECTION: Yes able to speak in complete sentences and Yes symmetric chest movement AUSCULTATION: clear to auscultation bilaterally, no crackles, no rales, no rhonchi and no wheezes Cardio: COMMON NORMALS: no JVD, regular rate, regular rhythm, S1 normal heart sound present and S2 normal heart sound present RATE: regular rate RHYTHM: regular rhythm HEART SOUNDS: S1 normal heart sound present, S2 normal heart sound present, no click, no gallops, no murmurs, no rubs and abnormal split S2 GI: COMMON NORMALS: Soft to palpation and No hepatosplenomegaly present PALPATION: Yes Soft to palpation, No Tenderness to palpation present (GI), No Guarding due to palpation present (GI), No Rigid due to palpation, Yes No hepatosplenomegaly present, No Hernia present, No Palpable mass present and No Pulsatile mass present : COMMON NORMALS: Yes no CVA tenderness BLADDER/KIDNEY EXAM: Yes no CVA tenderness EXTERNAL FEMALE EXAM: No Hernia present Back/Pelvis: COMMON NORMALS: no CVA tenderness, thoracic and lumbar spine normal to inspection, no thoracic nor lumbar tenderness and thoraco-lumbar ROM normal Extremity: COMMON NORMALS: normal to inspection, full ROM, capillary refill normal, no joint enlargement, no clubbing, cyanosis or edema and no calf ten derness Neuro: JACQUELYN COMA SCALE: document GCS findings Jacquelyn coma scale eye opening: Spontaneous Jacquelyn coma scale verbal response: Confused [place] coma scale motor response: Obey commands [place] coma scale total score: 14 COMMON NORMALS: CN's II-XII intact bilaterally, moves all extremities, no focal motor deficits and no sensory deficits noted SENSORIUM/ORIENTATION: Yes lethargic MENINGEAL SIGNS: Yes no meningeal signs SPEECH: speech normal Psych: COMMON NORMALS: mental status grossly normal, Normal thought process present, cooperative, normal affect, speech normal and activity/motor behavior normal APPEARANCE: Yes well kempt SPEECH: Yes normal speech THOUGHT PROCESS: Normal thought process present Skin: COMMON NORMALS: no rashes or lesions noted, turgor normal, no jaundice, no petechiae and no mottling GENERAL SKIN EXAM: no rashes or lesions noted and turgor normal Course Vital Signs: Vital signs: Vital Signs Temperature 98.3 F 11/26/19 20:03 Pulse Rate 70 11/26/19 20:03 Respiratory Rate 22 H 11/26/19 20:03 Blood Pressure 116/58 11/26/19 19:42 Pulse Oximetry 92 11/26/19 19:42 MDM - Weakness MDM Narrative: Medical decision making narrative: 1699 - Patient has generalized weakness, hypoxia and is COVID positive. Her chest x-ray suggest viral pneumonitis. Case was reviewed with Dr. Garner and he wants the patient to be admitted with a CT scan of the chest. Patient will be going to the viral ICU. 1814 -we now have no beds the ability to take a COVID patient. Patient will be transferred to another facility. Calls been placed to [facility]. 1849 -Case was reviewed with Dr. Barger, he will accept the Pt. in transfer. Lab Data: Labs: Lab Results 11/26/19 11/26/19 11/26/19 Range/Units 15:05 15:05 15:05 WBC 4.3 (4.0-10.0) 10^3/ uL RBC 3.84 L (4.1-5.3) 10^6/u L Hgb 11.0 L (11.5-15.3) g/dL Hct 35.9 L (37.0-47.0) % MCV 93.5 (81-99) fL MCH 28.6 (28.0-34.0) pg MCHC 30.6 (30.0-36.0) g/dL RDW 14.7 (12.1-15.1) % Plt Count 157 (130-400) 10^3/c mm MPV 9.9 (7.4-10.4) fL Neut % (Auto) 69.0 % Lymph % (Auto) 24.7 % Moody % (Auto) 5.4 % Eos % (Auto) 0.5 % Baso % (Auto) 0.2 % Neut # (Auto) 2.93 (1.8-7.7) 10^3/u L Lymph # (Auto) 1.1 (0.8-4.8) 10^3/u L Moody # (Auto) 0.2 (0.2-0.9) 10^3/u L Eos # (Auto) 0.0 (0.0-0.8) 10^3/u L Baso # (Auto) 0.0 (0.0-0.1) 10^3/u L Nucleated RBC % (a uto) 0 % Nucleated RBCs # 0.0 /100WBC PT 13.30 (12.1-14.9) SECO NDS INR 0.99 (0.8-1.2) D-Dimer (0-0.59) ug/mIFE U Specimen Type Sample Site ABG pH (7.35-7.45) ABG pCO2 (35-45) mmHg ABG pO2 (80.0-100.0) mmH g ABG HCO3 (22-26) mmol/L ABG O2 Saturation ABG Base Excess (-2.0-2.0) mmol/ L Som Test A-a O2 Gradient (5-10) mmHg Hematocrit (37-47) % Hgb O2 Saturation (95-100) % Carboxyhemoglobin (0.4-20.1) %THgb Methemoglobin (0.4-1.5) % Total Hemoglobin (12-16) g/dL Ionized Calcium (1.1-1.4) mmol/L O2 Delivery Device O2 Liters/Min % Accident Investigator ID Sodium 143 (136-145) mmol/L Potassium 3.3 L (3.5-5.1) mmol/L Chloride 104 (98-107) mmol/L Carbon Dioxide 25 (22-29) mmol/L Anion Gap 17.3 (5-19) BUN 13 (8-23) mg/dL Creatinine 0.5 (0.5-0.9) mg/dL GFR Calculation Not Reportable Glucose 109 (65-115) mg/dL Calculated Osmolal ity 293 (285-295) mOsm/k g Lactic Acid (0.5-2.2) mmol/L Calcium 8.3 L (8.5-10.5) mg/dL Magnesium 1.9 (1.7-2.3) mg/dL Ferritin (15-150) ng/mL Total Bilirubin 0.2 (0.15-1.2) mg/dL AST 12 (0-32) U/L ALT 6 (0-33) U/L Alkaline Phosphata se 88 (35-105) IU/L Ammonia (11-51) umol/L Lactate Dehydrogen ase (135-214) U/L Creatine Kinase 34 (26-192) U/L Troponin T Baselin e (0-10) ng/L Troponin T 120 Min redding (0-10) ng/L Delta Troponin T (0-10) ABS# NT-Pro-B Natriuret Pep 3069 H (0-125) pg/mL Total Protein 6.8 (6.6-8.7) g/dL Albumin 3.6 (3.5-5.2) g/dL Globulin 3.2 (1.3-4.6) g/dL Lipase 28 (13-60) U/L TSH 2.66 (0.27-4.20) uIU/ mL Urine Color (Yellow) Urine Appearance (CLEAR) Urine pH (5-7) Ur Specific Gravit y (1.005-1.030) Urine Protein (Negative) Urine Glucose (UA) (Normal) Urine Ketones (Negative) Urine Blood (Negative) Urine Nitrate (Negative) Urine Bilirubin (NEGATIVE) Urine Urobilinogen (Negative) mg/dL Ur Leukocyte Vicki ase (Negative) Urine RBC (0-2) /hpf Urine WBC (0-5) /hpf Ur Squamous Epith Cells (0-5) Amorphous Sediment Urine Bacteria (NONE) Urine Mucus Urine Yeast Urine Opiates Scre en (Negative) ng/mL Ur Barbiturates Sc reen (Negative) ng/mL Ur Phencyclidine S crn (Negative) ng/mL Ur Amphetamines Sc reen (Negative) ng/mL U Benzodiazepines Scrn (Negative) ng/mL Urine Cocaine Scre en (Negative) ng/mL U Marijuana (THC) Screen (Negative) ng/mL Serum Ketones Negative (Negative) Influenza Type A A g (Negative) Influenza Type B A g (Negative) SARS-CoV-2 Ag (Rap id) (Negative) 11/26/19 11/26/19 11/26/19 Range/Units 15:05 15:05 15:05 WBC (4.0-10.0) 10^3/ uL RBC (4.1-5.3) 10^6/u L Hgb (11.5-15.3) g/dL Hct (37.0-47.0) % MCV (81-99) fL MCH (28.0-34.0) pg MCHC (30.0-36.0) g/dL RDW (12.1-15.1) % Plt Count (130-400) 10^3/c mm MPV (7.4-10.4) fL Neut % (Auto) % Lymph % (Auto) % Moody % (Auto) % Eos % (Auto) % Baso % (Auto) % Neut # (Auto) (1.8-7.7) 10^3/u L Lymph # (Auto) (0.8-4.8) 10^3/u L Moody # (Auto) (0.2-0.9) 10^3/u L Eos # (Auto) (0.0-0.8) 10^3/u L Baso # (Auto) (0.0-0.1) 10^3/u L Nucleated RBC % (a uto) % Nucleated RBCs # /100WBC PT (12.1-14.9) SECO NDS INR (0.8-1.2) D-Dimer (0-0.59) ug/mIFE U Specimen Type Sample Site ABG pH (7.35-7.45) ABG pCO2 (35-45) mmHg ABG pO2 (80.0-100.0) mmH g ABG HCO3 (22-26) mmol/L ABG O2 Saturation ABG Base Excess (-2.0-2.0) mmol/ L Som Test A-a O2 Gradient (5-10) mmHg Hematocrit (37-47) % Hgb O2 Saturation (95-100) % Carboxyhemoglobin (0.4-20.1) %THgb Methemoglobin (0.4-1.5) % Total Hemoglobin (12-16) g/dL Ionized Calcium (1.1-1.4) mmol/L O2 Delivery Device O2 Liters/Min % Accident Investigator ID Sodium (136-145) mmol/L Potassium (3.5-5.1) mmol/L Chloride (98-107) mmol/L Carbon Dioxide (22-29) mmol/L Anion Gap (5-19) BUN (8-23) mg/dL Creatinine (0.5-0.9) mg/dL GFR Calculation Glucose (65-115) mg/dL Calculated Osmolal ity (285-295) mOsm/k g Lactic Acid 0.8 (0.5-2.2) mmol/L Calcium (8.5-10.5) mg/dL Magnesium (1.7-2.3) mg/dL Ferritin (15-150) ng/mL Total Bilirubin (0.15-1.2) mg/dL AST (0-32) U/L ALT (0-33) U/L Alkaline Phosphata se (35-105) IU/L Ammonia 28 (11-51) umol/L Lactate Dehydrogen ase (135-214) U/L Creatine Kinase (26-192) U/L Troponin T Baselin e 37 H (0-10) ng/L Troponin T 120 Min redding (0-10) ng/L Delta Troponin T (0-10) ABS# NT-Pro-B Natriuret Pep (0-125) pg/mL Total Protein (6.6-8.7) g/dL Albumin (3.5-5.2) g/dL Globulin (1.3-4.6) g/dL Lipase (13-60) U/L TSH (0.27-4.20) uIU/ mL Urine Color (Yellow) Urine Appearance (CLEAR) Urine pH (5-7) Ur Specific Gravit y (1.005-1.030) Urine Protein (Negative) Urine Glucose (UA) (Normal) Urine Ketones (Negative) Urine Blood (Negative) Urine Nitrate (Negative) Urine Bilirubin (NEGATIVE) Urine Urobilinogen (Negative) mg/dL Ur Leukocyte Vicki ase (Negative) Urine RBC (0-2) /hpf Urine WBC (0-5) /hpf Ur Squamous Epith Cells (0-5) Amorphous Sediment Urine Bacteria (NONE) Urine Mucus Urine Yeast Urine Opiates Scre en (Negative) ng/mL Ur Barbiturates Sc reen (Negative) ng/mL Ur Phencyclidine S crn (Negative) ng/mL Ur Amphetamines Sc reen (Negative) ng/mL U Benzodiazepines Scrn (Negative) ng/mL Urine Cocaine Scre en (Negative) ng/mL U Marijuana (THC) Screen (Negative) ng/mL Serum Ketones (Negative) Influenza Type A A g (Negative) Influenza Type B A g (Negative) SARS-CoV-2 Ag (Rap id) (Negative) 11/26/19 11/26/19 11/26/19 Range/Units 15:05 15:05 15:20 WBC (4.0-10.0) 10^3/ uL RBC (4.1-5.3) 10^6/u L Hgb (11.5-15.3) g/dL Hct (37.0-47.0) % MCV (81-99) fL MCH (28.0-34.0) pg MCHC (30.0-36.0) g/dL RDW (12.1-15.1) % Plt Count (130-400) 10^3/c mm MPV (7.4-10.4) fL Neut % (Auto) % Lymph % (Auto) % Moody % (Auto) % Eos % (Auto) % Baso % (Auto) % Neut # (Auto) (1.8-7.7) 10^3/u L Lymph # (Auto) (0.8-4.8) 10^3/u L Moody # (Auto) (0.2-0.9) 10^3/u L Eos # (Auto) (0.0-0.8) 10^3/u L Baso # (Auto) (0.0-0.1) 10^3/u L Nucleated RBC % (a uto) % Nucleated RBCs # /100WBC PT (12.1-14.9) SECO NDS INR (0.8-1.2) D-Dimer 1.41 H (0-0.59) ug/mIFE U Specimen Type Arterial Sample Site Brachial, left ABG pH 7.44 (7.35-7.45) ABG pCO2 43.4 (35-45) mmHg ABG pO2 80.2 (80.0-100.0) mmH g ABG HCO3 29.7 H (22-26) mmol/L ABG O2 Saturation 96.9 ABG Base Excess 5.0 H (-2.0-2.0) mmol/ L Som Test Pos A-a O2 Gradient 2.0 L (5-10) mmHg Hematocrit 32.1 L (37-47) % Hgb O2 Saturation 95.0 (95-100) % Carboxyhemoglobin 1.3 (0.4-20.1) %THgb Methemoglobin 0.7 (0.4-1.5) % Total Hemoglobin 10.5 L (12-16) g/dL Ionized Calcium 1.2 (1.1-1.4) mmol/L O2 Delivery Device Nc O2 Liters/Min 1.0 % Accident Investigator ID [place] Sodium 142.0 (136-145) mmol/L Potassium 3.1 L (3.5-5.1) mmol/L Chloride (98-107) mmol/L Carbon Dioxide (22-29) mmol/L Anion Gap (5-19) BUN (8-23) mg/dL Creatinine (0.5-0.9) mg/dL GFR Calculation Glucose 99.0 (65-115) mg/dL Calculated Osmolal ity (285-295) mOsm/k g Lactic Acid (0.5-2.2) mmol/L Calcium (8.5-10.5) mg/dL Magnesium (1.7-2.3) mg/dL Ferritin 174 H (15-150) ng/mL Total Bilirubin (0.15-1.2) mg/dL AST (0-32) U/L ALT (0-33) U/L Alkaline Phosphata se (35-105) IU/L Ammonia (11-51) umol/L Lactate Dehydrogen ase 158 (135-214) U/L Creatine Kinase (26-192) U/L Troponin T Baselin e (0-10) ng/L Troponin T 120 Min redding (0-10) ng/L Delta Troponin T (0-10) ABS# NT-Pro-B Natriuret Pep (0-125) pg/mL Total Protein (6.6-8.7) g/dL Albumin (3.5-5.2) g/dL Globulin (1.3-4.6) g/dL Lipase (13-60) U/L TSH (0.27-4.20) uIU/ mL Urine Color (Yellow) Urine Appearance (CLEAR) Urine pH (5-7) Ur Specific Gravit y (1.005-1.030) Urine Protein (Negative) Urine Glucose (UA) (Normal) Urine Ketones (Negative) Urine Blood (Negative) Urine Nitrate (Negative) Urine Bilirubin (NEGATIVE) Urine Urobilinogen (Negative) mg/dL Ur Leukocyte Vicki ase (Negative) Urine RBC (0-2) /hpf Urine WBC (0-5) /hpf Ur Squamous Epith Cells (0-5) Amorphous Sediment Urine Bacteria (NONE) Urine Mucus Urine Yeast Urine Opiates Scre en (Negative) ng/mL Ur Barbiturates Sc reen (Negative) ng/mL Ur Phencyclidine S crn (Negative) ng/mL Ur Amphetamines Sc reen (Negative) ng/mL U Benzodiazepines Scrn (Negative) ng/mL Urine Cocaine Scre en (Negative) ng/mL U Marijuana (THC) Screen (Negative) ng/mL Serum Ketones (Negative) Influenza Type A A g (Negative) Influenza Type B A g (Negative) SARS-CoV-2 Ag (Rap id) (Negative) 11/26/19 11/26/19 11/26/19 Range/Units 15:30 15:30 15:35 WBC (4.0-10.0) 10^3/ uL RBC (4.1-5.3) 10^6/u L Hgb (11.5-15.3) g/dL Hct (37.0-47.0) % MCV (81-99) fL MCH (28.0-34.0) pg MCHC (30.0-36.0) g/dL RDW (12.1-15.1) % Plt Count (130-400) 10^3/c mm MPV (7.4-10.4) fL Neut % (Auto) % Lymph % (Auto) % Moody % (Auto) % Eos % (Auto) % Baso % (Auto) % Neut # (Auto) (1.8-7.7) 10^3/u L Lymph # (Auto) (0.8-4.8) 10^3/u L Moody # (Auto) (0.2-0.9) 10^3/u L Eos # (Auto) (0.0-0.8) 10^3/u L Baso # (Auto) (0.0-0.1) 10^3/u L Nucleated RBC % (a uto) % Nucleated RBCs # /100WBC PT (12.1-14.9) SECO NDS INR (0.8-1.2) D-Dimer (0-0.59) ug/mIFE U Specimen Type Sample Site ABG pH (7.35-7.45) ABG pCO2 (35-45) mmHg ABG pO2 (80.0-100.0) mmH g ABG HCO3 (22-26) mmol/L ABG O2 Saturation ABG Base Excess (-2.0-2.0) mmol/ L Som Test A-a O2 Gradient (5-10) mmHg Hematocrit (37-47) % Hgb O2 Saturation (95-100) % Carboxyhemoglobin (0.4-20.1) %THgb Methemoglobin (0.4-1.5) % Total Hemoglobin (12-16) g/dL Ionized Calcium (1.1-1.4) mmol/L O2 Delivery Device O2 Liters/Min % Accident Investigator ID Sodium (136-145) mmol/L Potassium (3.5-5.1) mmol/L Chloride (98-107) mmol/L Carbon Dioxide (22-29) mmol/L Anion Gap (5-19) BUN (8-23) mg/dL Creatinine (0.5-0.9) mg/dL GFR Calculation Glucose (65-115) mg/dL Calculated Osmolal ity (285-295) mOsm/k g Lactic Acid (0.5-2.2) mmol/L Calcium (8.5-10.5) mg/dL Magnesium (1.7-2.3) mg/dL Ferritin (15-150) ng/mL Total Bilirubin (0.15-1.2) mg/dL AST (0-32) U/L ALT (0-33) U/L Alkaline Phosphata se (35-105) IU/L Ammonia (11-51) umol/L Lactate Dehydrogen ase (135-214) U/L Creatine Kinase (26-192) U/L Troponin T Baselin e (0-10) ng/L Troponin T 120 Min redding (0-10) ng/L Delta Troponin T (0-10) ABS# NT-Pro-B Natriuret Pep (0-125) pg/mL Total Protein (6.6-8.7) g/dL Albumin (3.5-5.2) g/dL Globulin (1.3-4.6) g/dL Lipase (13-60) U/L TSH (0.27-4.20) uIU/ mL Urine Color Yellow (Yellow) Urine Appearance Sl hazy (CLEAR) Urine pH 5 (5-7) Ur Specific Gravit y 1.025 (1.005-1.030) Urine Protein Neg (Negative) Urine Glucose (UA) Norm (Normal) Urine Ketones Negative (Negative) Urine Blood Neg (Negative) Urine Nitrate Negative (Negative) Urine Bilirubin Neg (NEGATIVE) Urine Urobilinogen Norm (Negative) mg/dL Ur Leukocyte Vicki ase Negative (Negative) Urine RBC 0-4 H (0-2) /hpf Urine WBC 0-4 H (0-5) /hpf Ur Squamous Epith Cells 0-4 H (0-5) Amorphous Sediment Not Reportable Urine Bacteria 3+ H (NONE) Urine Mucus 1+ Urine Yeast 4+ H Urine Opiates Scre en Positive H (Negative) ng/mL Ur Barbiturates Sc reen Negative (Negative) ng/mL Ur Phencyclidine S crn Positive H (Negative) ng/mL Ur Amphetamines Sc reen Negative (Negative) ng/mL U Benzodiazepines Scrn Positive H (Negative) ng/mL Urine Cocaine Scre en Negative (Negative) ng/mL U Marijuana (THC) Screen Negative (Negative) ng/mL Serum Ketones (Negative) Influenza Type A A g (Negative) Influenza Type B A g (Negative) SARS-CoV-2 Ag (Rap id) Positive H (Negative) 11/26/19 11/26/19 Range/Units 15:35 17:00 WBC (4.0-10.0) 10^3/ uL RBC (4.1-5.3) 10^6/u L Hgb (11.5-15.3) g/dL Hct (37.0-47.0) % MCV (81-99) fL MCH (28.0-34.0) pg MCHC (30.0-36.0) g/dL RDW (12.1-15.1) % Plt Count (130-400) 10^3/c mm MPV (7.4-10.4) fL Neut % (Auto) % Lymph % (Auto) % Moody % (Auto) % Eos % (Auto) % Baso % (Auto) % Neut # (Auto) (1.8-7.7) 10^3/u L Lymph # (Auto) (0.8-4.8) 10^3/u L Moody # (Auto) (0.2-0.9) 10^3/u L Eos # (Auto) (0.0-0.8) 10^3/u L Baso # (Auto) (0.0-0.1) 10^3/u L Nucleated RBC % (a uto) % Nucleated RBCs # /100WBC PT (12.1-14.9) SECO NDS INR (0.8-1.2) D-Dimer (0-0.59) ug/mIFE U Specimen Type Sample Site ABG pH (7.35-7.45) ABG pCO2 (35-45) mmHg ABG pO2 (80.0-100.0) mmH g ABG HCO3 (22-26) mmol/L ABG O2 Saturation ABG Base Excess (-2.0-2.0) mmol/ L Som Test A-a O2 Gradient (5-10) mmHg Hematocrit (37-47) % Hgb O2 Saturation (95-100) % Carboxyhemoglobin (0.4-20.1) %THgb Methemoglobin (0.4-1.5) % Total Hemoglobin (12-16) g/dL Ionized Calcium (1.1-1.4) mmol/L O2 Delivery Device O2 Liters/Min % Accident Investigator ID Sodium (136-145) mmol/L Potassium (3.5-5.1) mmol/L Chloride (98-107) mmol/L Carbon Dioxide (22-29) mmol/L Anion Gap (5-19) BUN (8-23) mg/dL Creatinine (0.5-0.9) mg/dL GFR Calculation Glucose (65-115) mg/dL Calculated Osmolal ity (285-295) mOsm/k g Lactic Acid (0.5-2.2) mmol/L Calcium (8.5-10.5) mg/dL Magnesium (1.7-2.3) mg/dL Ferritin (15-150) ng/mL Total Bilirubin (0.15-1.2) mg/dL AST (0-32) U/L ALT (0-33) U/L Alkaline Phosphata se (35-105) IU/L Ammonia (11-51) umol/L Lactate Dehydrogen ase (135-214) U/L Creatine Kinase (26-192) U/L Troponin T Baselin e (0-10) ng/L Troponin T 120 Min redding 33.48 H (0-10) ng/L Delta Troponin T -3.52 L (0-10) ABS# NT-Pro-B Natriuret Pep (0-125) pg/mL Total Protein (6.6-8.7) g/dL Albumin (3.5-5.2) g/dL Globulin (1.3-4.6) g/dL Lipase (13-60) U/L TSH (0.27-4.20) uIU/ mL Urine Color (Yellow) Urine Appearance (CLEAR) Urine pH (5-7) Ur Specific Gravit y (1.005-1.030) Urine Protein (Negative) Urine Glucose (UA) (Normal) Urine Ketones (Negative) Urine Blood (Negative) Urine Nitrate (Negative) Urine Bilirubin (NEGATIVE) Urine Urobilinogen (Negative) mg/dL Ur Leukocyte Vicki ase (Negative) Urine RBC (0-2) /hpf Urine WBC (0-5) /hpf Ur Squamous Epith Cells (0-5) Amorphous Sediment Urine Bacteria (NONE) Urine Mucus Urine Yeast Urine Opiates Scre en (Negative) ng/mL Ur Barbiturates Sc reen (Negative) ng/mL Ur Phencyclidine S crn (Negative) ng/mL Ur Amphetamines Sc reen (Negative) ng/mL U Benzodiazepines Scrn (Negative) ng/mL Urine Cocaine Scre en (Negative) ng/mL U Marijuana (THC) Screen (Negative) ng/mL Serum Ketones (Negative) Influenza Type A A g Negative (Negative) Influenza Type B A g Negative (Negative) SARS-CoV-2 Ag (Rap id) (Negative) Imaging Data^: CXR: Attestation: I personally reviewed and interpreted this imaging study as follows: My impression: Diffuse interstitial prominence. Viral pneumonitis suggested. CT Chest: Radiologist's impression: [address] [address] [address] Scan Report Signed Patient: Deja Fletcher Unit #: [id number] : 1945 Age/Sex: 74 / F ADM Date: 11/26/19 Loc: ER Room/Bed: Attending Dr: Ordering Provider/Ordering MD: Lisa Taylor DO Date of Service: 11/26/19 Procedure(s): CT angio chest PE protcl [id number] Accession Number(s): [id number] Report Number: [id number] PROCEDURE INFORMATION: Exam: CT Angiography Chest With Contrast Exam date and time: 11/26/2019 6:56 PM Age: 74 years old Clinical indication: Shortness of breath; Patient HX: Covid +; Additional info: Dyspnea TECHNIQUE: Imaging protocol: Computed tomographic angiography of the chest with intravenous contrast. 3D rendering (Not supervised by radiologist): MIP and/or 3D reconstructed images were created by the technologist. Radiation optimization: All CT scans at this facility use at least one of these dose optimization techniques: automated exposure control; mA and/or kV adjustment per patient size (includes targeted exams where dose is matched to clinical indication); or iterative reconstruction. Contrast material: OMNI 350; Contrast volume: 92 ml; Contrast route: INTRAVENOUS (IV); COMPARISON: CR XR chest 1V portable [id number] 11/26/2019 5:01 PM RADIATION DOSE METRICS: Total DLP (mGy-cm): 405.14 FINDINGS: Pulmonary arteries: Normal. No pulmonary emboli. Aorta: Calcification of the abdominal aorta and/or iliac arteries consistent with atherosclerotic vessel disease. Incompletely visualized infrarenal abdominal aortic aneurysm measuring at least 3.6 cm in diameter. Lungs: Severe centrilobular emphysema. 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 Mild right hilar adenopathy and possible mucous plugs in right lower lobe bronchi. Pleural space: Unremarkable. No pneumothorax. No pleural effusion. Heart: Severe calcified coronary artery disease. Possible aortic valve replacement versus calcified aortic valve. Lymph nodes: Unremarkable. No enlarged lymph nodes. Gallbladder and bile ducts: Solitary gallstone within the gallbladder. Kidneys and ureters: Left extrarenal pelvis versus left hydronephrosis. Bones/joints: Unremarkable. No acute fracture. 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 This creates posterior extrinsic impression upon the right posterior lung base. CT/CT angio chest PE protcl [id number] IMPRESSION: 1. Severe centrilobular emphysema. 2. Severe calcified coronary artery disease. 3. Possible aortic valve replacement versus calcified aortic valve. 4. 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 This creates posterior extrinsic impression upon the right posterior lung base. 5. 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 6. Mild right hilar adenopathy and possible mucous plugs in right lower lobe bronchi. 7. Left extrarenal pelvis versus left hydronephrosis. 8. Incompletely visualized infrarenal abdominal aortic aneurysm measuring at least 3.6 cm in diameter. 9. No pulmonary embolus or aortic dissection. Radiation Dose CTDIVOL = (mGy): DLP = 405.14 (mGy-cm) Dictated By: Phil Kearns MD Signed By: Phil Kearns MD Signed Date/Time: 11/26/192025 DD/ 24 EKG Data^: EKG 1: Attestation: I personally reviewed and interpreted this EKG as follows: EKG interpretation date: 11/26/19 EKG interpretation time: 15:09 Interpretation: Normal sinus rhythm at 70 beats a minute, no blocks, normal intervals, normal axis, nonspecific ST and T wave changes. EKG 2: Attestation: I personally reviewed and interpreted this EKG as follows: EKG interpretation date: 11/26/19 EKG interpretation time: 17:16 Interpretation: Normal sinus rhythm at 63 beats a minute, no blocks, normal intervals, no acute ST-T wave changes. Discharge Plan Discharge Patient Disposition: Admitted As Inpatient Clinical Impression: COVID-19 virus infection, Viral pneumonitis Condition: Stable Referrals: Shayy Hayden MD [Primary Care Provider] - Coding Level of Care Code ED Layout Artist for Chg Fwd Exam Comprehensive
[2019-11-26 15:26] LABS: Basophils % 0.2 %; Eosinophils % 0.5 %; Hematocrit 35.9 % (37.0-47.0); Lymphocytes # 1.1 10^3/uL (0.8-4.8); Lymphocytes % 24.7 %; Mean Corpuscular HGB Conc 30.6 g/dL (30.0-36.0); Mean Corpuscular Hemoglobin 28.6 pg (28.0-34.0); Mean Corpuscular Volume 93.5 fL (81-99); Mean Platelet Volume 9.9 fL (7.4-10.4); Monocytes # 0.2 10^3/uL (0.2-0.9); Monocytes % 5.4 %; Neutrophils # 2.93 10^3/uL (1.8-7.7); Nucleated Red Blood Cells % 0 %; Platelet Count 157 10^3/cmm (130-400); Red Blood Count 3.84 10^6/uL (4.1-5.3); Red Cell Distribution Width 14.7 % (12.1-15.1); White Blood Count 4.3 10^3/uL (4.0-10.0)
[2019-11-26 15:33] LABS: ABG PCO2 43.4 mmHg (35-45); ABG PH Result 7.44 (7.35-7.45); Arterial Blood Gas Hematocrit 32.1 % (37-47); Blood Gas Allen Test Pos; Blood Gas Operator Identificat MONRO; Blood Gas Sample Site Brachial, left; Blood Gas Sample Type Arterial; Carboxyhemoglobin 1.3 %THgb (0.4-20.1); HCO3 ABG 29.7 mmol/L (22-26); Ionized Calcium Level - ABG 1.2 mmol/L (1.1-1.4); Methemoglobin 0.7 % (0.4-1.5); Oxygen Device NC; Oxygen Saturation ABG 96.9; PO2 ABG 80.2 mmHg (80.0-100.0); Potassium Level - ABG 3.1 mmol/L (3.5-5.0); Total Hemoglobin 10.5 g/dL (12-16)
--- NOTE | 2019-11-26 15:42 | PC.NURSE ---
Covid and Flu swabs performed at this time. Pt tolerated well. Swabs sent to lab.
[2019-11-26 15:44] LABS: INR 0.99 (0.8-1.2)
[2019-11-26 15:56] LABS: Lactic Sepsis W/Reflex 0.8 mmol/L (0.5-2.2)
[2019-11-26 15:57] LABS: Alanine Aminotransferase 6 U/L (0-33); Albumin Level 3.6 g/dL (3.5-5.2); Alkaline Phosphatase 88 IU/L (35-105); Ammonia 28 umol/L (11-51); Anion Gap 17.3 (5-19); Aspartate Amino Transferase 12 U/L (0-32); Blood Urea Nitrogen 13 mg/dL (8-23); Carbon Dioxide 25 mmol/L (22-29); Chloride 104 mmol/L (98-107); Creatine Phosphokinase 34 U/L (26-192); Globulin 3.2 g/dL (1.3-4.6); Glucose 109 mg/dL (65-115); Lipase 28 U/L (13-60); Magnesium 1.9 mg/dL (1.7-2.3); Osmolality Calculated 293 mOsm/kg (285-295); Sodium 143 mmol/L (136-145); Thyroid Stimulating Hormone 2.66 uIU/mL (0.27-4.20); Total Bilirubin 0.2 mg/dL (0.15-1.2); Total Protein 6.8 g/dL (6.6-8.7)
[2019-11-26 15:58] LABS: Troponin(5th) Baseline 37 ng/L (0-10)
[2019-11-26 16:02] LABS: Ketone (Acetest) Serum Negative (Negative); Potassium 3.3 mmol/L (3.5-5.1)
[2019-11-26 16:04] LABS: Calcium 8.3 mg/dL (8.5-10.5); NT Pro B Type Natriuretic Pept 3069 pg/mL (0-125)
[2019-11-26 16:11] LABS: Amphetamines Screen Urine Negative (Negative); Barbiturates Screen Urine Negative (Negative); Benzodiazepines Screen Urine Positive (Negative); Cocaine Screen Urine Negative (Negative); Opiate Screen Urine Positive (Negative); PCP Screen Urine Positive (Negative); THC Screen Urine Negative (Negative)
[2019-11-26 16:14] LABS: Bilirubin Urine Neg (NEGATIVE); Blood Urine Neg (Negative); Glucose Urine UA Norm (Normal); Ketones Urine Negative (Negative); Leukocyte Esterase Urine Negative (Negative); Nitrate Urine Negative (Negative); Protein Urine Neg (Negative); Specific Gravity, Urine 1.025 (1.005-1.030); Urine Appearance SL Hazy (CLEAR); Urine Color Yellow (Yellow); Urobilinogen Urine Norm (Negative); pH Urine 5 (5-7)
[2019-11-26 16:15] LABS: Add Urine Culture? No; Bacteria Urine 3+; Mucus Urine 1+; RBC Urine 0-4 /hpf (0-2); Squamous Epithelial Cell Urine 0-4 (0-5); WBC Urine 0-4 /hpf (0-5)
[2019-11-26 16:23] LABS: SARS Covid-2 Antigen Positive (Negative)
[2019-11-26 16:28] LABS: Influenza A by IFA Negative (Negative); Influenza B by IFA Negative (Negative)
--- NOTE | 2019-11-26 16:59 | ECG_ITS ---
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 Measurements Intervals [place] Rate: 63 P: 80 NC: 144 QRS: 83 QRSD: 97 T: 61 QT: 425 QTc: 435 Interpretive Statements SINUS RHYTHM NONSPECIFIC T-WAVE ABNORMALITY Compared to ECG 11/26/2019 15:09:54 Possible ischemia no longer present T-wave abnormality still present Electronically Signed On 11-26-2019 23:48:11 CDT by Norah Marin M.D. [id number]
[2019-11-26] MEDS: sodium chloride 0.9% 1,000 ML 999 ML IV (17:02)
[2019-11-26 17:31] LABS: Troponin 5 2HR 33.48 ng/L (0-10)
[2019-11-26 17:34] LABS: Troponin 5 2HR Delta -3.52 ABS# (0-10)
[2019-11-26] MEDS: dexamethasone 4 mg/mL INJ 8 MG IVP (17:34)
--- NOTE | 2019-11-26 17:56 | PC.NURSE ---
Pt unable to swallow pills. Dr. Taylor notified that pt cannot swallow the K+ pills. Dr. Taylor orders to give 40meq potassium chloride oral solution at this time. Order read back and confirmed.
[2019-11-26] MEDS: sodium chloride 0.9% 1,000 ML 100 ML IV (17:59)
[2019-11-26] MEDS: potassium chloride oral liq 20 mEq/15 mL UDC 40 MEQ PO (18:00)
[2019-11-26 18:20] LABS: D Dimer 1.41 ug/mIFEU (0-0.59)
[2019-11-26 18:48] LABS: Ferritin 174 ng/mL (15-150); Lactate Dehydrogenase 158 U/L (135-214)
--- NOTE | 2019-11-26 18:48 | CTR_ITS ---
PROCEDURE INFORMATION: Exam: CT Angiography Chest With Contrast Exam date and time: 11/26/2019 6:56 PM Age: 74 years old Clinical indication: Shortness of breath; Patient HX: Covid +; Additional info: Dyspnea TECHNIQUE: Imaging protocol: Computed tomographic angiography of the chest with intravenous contrast. 3D rendering (Not supervised by radiologist): MIP and/or 3D reconstructed images were created by the technologist. Radiation optimization: All CT scans at this facility use at least one of these dose optimization techniques: automated exposure control; mA and/or kV adjustment per patient size (includes targeted exams where dose is matched to clinical indication); or iterative reconstruction. Contrast material: OMNI 350; Contrast volume: 92 ml; Contrast route: INTRAVENOUS (IV); COMPARISON: CR XR chest 1V portable [id number] 11/26/2019 5:01 PM RADIATION DOSE METRICS: Total DLP (mGy-cm): 405.14 FINDINGS: Pulmonary arteries: Normal. No pulmonary emboli. Aorta: Calcification of the abdominal aorta and/or iliac arteries consistent with atherosclerotic vessel disease. Incompletely visualized infrarenal abdominal aortic aneurysm measuring at least 3.6 cm in diameter. Lungs: Severe centrilobular emphysema. 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 Mild right hilar adenopathy and possible mucous plugs in right lower lobe bronchi. Pleural space: Unremarkable. No pneumothorax. No pleural effusion. Heart: Severe calcified coronary artery disease. Possible aortic valve replacement versus calcified aortic valve. Lymph nodes: Unremarkable. No enlarged lymph nodes. Gallbladder and bile ducts: Solitary gallstone within the gallbladder. Kidneys and ureters: Left extrarenal pelvis versus left hydronephrosis. Bones/joints: Unremarkable. No acute fracture. 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 This creates posterior extrinsic impression upon the right posterior lung base. CT/CT angio chest PE protcl [id number] IMPRESSION: 1. Severe centrilobular emphysema. 2. Severe calcified coronary artery disease. 3. Possible aortic valve replacement versus calcified aortic valve. 4. 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 This creates posterior extrinsic impression upon the right posterior lung base. 5. 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 6. Mild right hilar adenopathy and possible mucous plugs in right lower lobe bronchi. 7. Left extrarenal pelvis versus left hydronephrosis. 8. Incompletely visualized infrarenal abdominal aortic aneurysm measuring at least 3.6 cm in diameter. 9. No pulmonary embolus or aortic dissection. Radiation Dose CTDIVOL = (mGy): DLP = 405.14 (mGy-cm)
[2019-11-26] MEDS: iohexol 350 mg/mL 100 mL Btl IV (20:06)
[2019-11-26 21:34] LABS: Troponin 5 6HR 25.41 ng/L (0-10)
== END 2019-11-26 21:05 | disposition admitted as inpatient to this hospital (09) ==
PROVIDERS: Emergency Provider Emergency Medicine; PCP Family Medicine
DX: U07.1 COVID-19 (principal); J12.89 Other viral pneumonia; J44.9 Chronic obstructive pulmonary disease, unspecified; F03.90 Unspecified dementia, unspecified severity, without behavioral disturbance, psychotic disturbance, mood disturbance, and anxiety; Z87.891 Personal history of nicotine dependence; I70.0 Atherosclerosis of aorta
CPT/HCPCS: 12345; 36415; 36600; 51702; 71045; 71275; 80051; 80053; 80306; 81001; 82009; 82140; 82550; 82728; 82810; 83605; 83615; 83690; 83735; 83880; 83986; 84443; 84484; 85025; 85378; 85610; 87040; 87426; 87804; 93005; 96361; 96374; 96375; 99284; 99285; J1100; J2930; J7030; Q9967